=== PATIENT | male | born 1950 | race Caucasian/White ===

== ENCOUNTER 2018-03-30 05:55 | Inpatient (IN) | payer BC ==
[~2018-03-30 05:55] MED LIST: Buffered Lidocaine 0.9% SYRIN* 5 ML/SYR SYRINGE INTRADERM ONE
--- OUTSIDE RECORDS SUMMARY | 2018-03-30 05:58 | XMS REPORT | Continuity of Care Document ---
:1950 External Reference #:[id number] Author Name Carlin Borden M.D. Address [address] [place] [address] Care Team Providers Name Role Phone Miryam Smallwood M.D. Primary Care Physician Unavailable Payers Type Date Identification Numbers Payment Provider Subscriber Policy Number: [id number] [facility] Myrtle Guajardo PayID: [id number] [id number] [place] [id number] Advance Directives Description No Information Available Problems Date Description Provider Status Onset: Cardiac pacemaker in situ Active Onset: Bradycardia Active Onset: Atrial arrhythmia Active Onset: Stented coronary artery Active Onset: Coronary artery bypass grafts x 2 Active Onset: Coronary angioplasty Active Onset: Coronary arteriosclerosis Active Onset: Hypercholesterolemia Active Onset: Gout Active Onset: Vertigo Active Onset: 09/16/2016 Combined form of senile cataract Carlin Borden M.D. Active Onset: 03/23/2018 Tear film insufficiency Cariln Borden M.D. Active Family History Date Family Member(s) Problem(s) Comments Father No Current Problems Mother No Current Problems Social History Type Date Description Comments Sex Unknown Marital Status Legal Status: Occupation [employer] Work Status Retired ETOH Use Consumes 1 glass of wine per week ETOH Use Consumes 1-2 beers per week Tobacco Use Start: Unknown End: Patient is a former smoker Unknown Recreational Drug Use Denies Drug Use Smoking Status Reviewed: 03/23/18 Patient is a former smoker Allergies, Adverse Reactions, Alerts Date Description Reaction Status Severity Comments 03/21/2017 [facility] Active Medications Medication Date Status Form Strength Qnty SIG Indications Ordering Provider Metoprolol 00/00/ Active Tablets ER 25mg Take One Unknown Succinate ER 0000 24HR Tablet By Mouth Every Day Allopurinol 00/00/ Active Tablets 300mg Unknown 0000 Irbesartan 00/00/ Active Tablets 300mg Unknown 0000 Spironolactone 00/00/ Active Tablets 25mg Unknown 0000 Atorvastatin 0000/ Active Tablets 20mg Unknown Calcium 0000 Aspirin 00/ Active Tablets DR 81mg Unknown 0000 Clopidogrel /00/ Active Tablets 75mg Unknown Bisulfate 0000 Coq10 / Active Capsules 50mg Unknown 0000 Doxycycline 0000/ Hx Tablets 100mg Take One Unknown Hyclate 0000 - Tablet By Mouth Twice 2017 A Day Amoxicillin // Hx Capsules 500mg Take One Unknown 0000 - Capsule By Mouth Every 2016 8 Hours Until Gone Pantoprazole / Hx Tablets DR 40mg Take One Unknown Sodium 0000 - Tablet By Mouth Every 2016 Day Before Breakfast Ondansetron / Hx Tablets 4mg Dissolve Unknown 0000 - Dispers One Tablet On The 2017 Tongue Every Day as Needed For Nausea Omeprazole 00// Hx Capsules 40mg Take One Unknown 0000 - DR Capsule By 09/15/ Mouth Every 2017 Day Metoprolol 00// Hx Tablets 50mg Take One Unknown Tartrate 0000 - Tablet By Mouth Every 2016 12 Hours Cephalexin 00// Hx Capsules 500mg Take One Unknown 0000 - Capsule By Mouth Four 2017 Times A Day Immunizations Description No Information Available Vital Signs Description No Information Available Results Description No Information Available Procedures Date Code Description Status 03/21/2017 99479 Est Patient Intermediate Exam Completed 09/16/2016 73572 Determination Of Refractive State Completed 09/16/2016 40462 New Patient Comprehensive Exam Completed 01/14/2004 00525 Patient No Show For Appt Completed 09/27/2003 71330 Patient No Show For Appt Completed Encounters Description No Information Available Plan of Treatment 03/23/2018 - Carlin Borden M.D.H25.813 Combined forms of age-related cataract , bilateralComments:Smoking can increase the risk of developing or worsening any eye related disease, as well as affect your overall health. If you are a smoker, we strongly recommend that you quit.If you are not a smoker, we strongly recommend that you do not start. You have been diagnosed with cataracts. If you are happy with your vision as it is now, then we will see you at your next scheduled appointment. If you feel like your vision is getting worse before your scheduled appointment, please call Miryam or Mairann at .Follow up:6 Month Follow Up Diagnostic Refraction You can expect to have your eyes dilated at your next visit. If Dr. Borden orders any additional testing, it may require extra time. We recommend that you bring sunglasses, as dilation drops often make you light sensitive until they wear off. We always recommendyou bring someone to drive you home if you are uncomfortable driving with your eyes dilated. If you have any questions before your next visit, feel free to call our office at .H04.123 Dry eye syndrome of bilateral lacrimal glandsComments:Both of your eyes appear to be dry. Use artificial tears as directed. You can use the tears more often if you are reading a book or are on the computer, as we tend to blink less, making our eyes dry out more.[facility] offers a few items in our optical department to help alleviate dry eye symptoms. Systane and Refresh are good brands of tears you can use. You can pick these up at any pharmacy and they do not require a prescription.
--- OUTSIDE RECORDS SUMMARY | 2018-03-30 05:59 | XMS REPORT ---
:1950 External Reference #:[id number] Author Organization [facility] Address [address] [place] [address] [place] [address] Phone [phone] Care Team Providers Name Role Phone Miryam Smallwood MD Primary Care Physician Unavailable Payers Type Date Identification Payment Subscriber Numbers Provider [facility] Maintenance Effective: Policy Number: [facility] Myrtle Rosario [place] [place] [id number] Rachel PayID: [id number] [address] Problems Date Description Provider Status Onset: 10/05/2013 Acute myocardial infarction of Juan Francisco Kimble M.D. Active anterior wall Onset: 10/05/2013 Chest pain Juan Francisco Kimble M.D. Active Onset: 10/05/2013 Pure hypercholesterolemia Juan Francisco Kimble M.D. Active Onset: 10/05/2013 Essential hypertension Juan Francisco Kimble M.D. Active Onset: 10/15/2013 Coronary arteriosclerosis Edna Noyola M.D. Active Onset: 10/18/2013 Malignant essential hypertension Juan Francisco Kimble M.D. Active Onset: 02/28/2014 Chronic ischemic heart disease Rayshawn De León M.D., [facility], Active [facility] Onset: 12/04/2015 Cardiac pacemaker in situ Edna Noyola M.D. Active Family History Date Family Member(s) Problem(s) Comments General Heart Disease General Stroke General Diabetes General Hypertension General Epilepsy General Seizure Disorder General No Current Problems Father due to Heart Disease () Father Heart Disease Mother due to Stroke () Siblings 1 Sister One; , unknown reason. Social History Type Date Description Comments Marital Status Occupation Retired 01/2014 Cigarette Use Former Cigarette Smoker Pt denies ever smoking cigar, pipe, or using chewing tobacco. ETOH Use consumes 1-2 glasses of wine per week Smoking Patient is a former smoker 2 PPD for 10 years Recreational Drug Use Denies Drug Use Daily Caffeine Consumes on average 3 cups of regular coffee per day Exercise Type/Frequency Does not exercise Allergies, Adverse Reactions, Alerts Date Description Reaction Status Severity Comments 10/05/2013 Norvasc active leg swelling Medications Medication Date Status Form Strength Qnty SIG Indications Ordering Provider Eliquis 08/12/ Active Tablets 5mg 180ta 1 by mouth Juan Francisco 2018 bs twice a day Alek Kimble M.D. Metoprolol 11/15/ Active Tablets 25mg 360ta 1 by mouth Juan Francisco Succinate ER 2017 ER 24HR bs twice a day Alek Kimble M.D. Allopurinol / Active Tablets 300mg 30tab 1 tab by Unknown 0000 s mouth daily Bi-Pap / Active Pt states Unknown 0000 not on a regular basis but does try to. Clopidogrel / Active Tablets 75mg 90tab 1 by mouth Juan Francisco Bisulfate 0000 s every day Alek Kimble M.D. Spironolactone / Active Tablets 25mg 1 by mouth Unknown 0000 every day Irbesartan / Active Tablets 300mg 90tab 1 by mouth Juan Francisco 0000 s every day Alek Kimble M.D. Lipitor / Active Tablets 20mg 1 tab Tiw Unknown 0000 Xarelto 08/11/ Hx Tablets 20mg 90tab 1 by mouth Juan Francisco 2018 - s every day F. 08/12/ Milana Kimble M.D. Metoprolol 11/15/ Hx Tablets 50mg 180ta 1 tablet Juan Francisco Tartrate 2017 - bs twice a day F. 11/15/ Georgette Kimble M.D. Metoprolol 11/15/ Hx Tablets 25mg 180ta 1 by mouth Juan Francisco Succinate ER 2017 - ER 24HR bs twice a day F. 2016 M.D. Amlodipine 10/27/ Hx Tablets 5mg 90tab 1 by mouth R07.9 Juan Francisco Besylate 2015 - s every day . 01/26/ 2015 M.D. Aldactone 07/30/ Hx Tablets 25mg 90tab take 1 Juan Francisco 2015 - s tablets by 09/13/ mouth every 2017 M.D. Avapro 07/08/ Hx Tablets 300mg 90tab take 1 Juan Francisco 2015 - s tablet by F. 09/13/ mouth daily 2017 M.D. Plavix 07/03/ Hx Tablets 75mg 30tab 1 tab by I25.10 Juan Francisco 2015 - s mouth daily 09/13/ 2017 M.D. Lipitor 06/16/ Hx Tablets 20mg 90tab one tab by Juan Francisco 2014 - s mouth every 09/13/ night at 2017 bedtime M.D. Nitrostat 06/16/ Hx Tablets 0.4mg 25tab dissolve 1 Juan Francisco 2014 - Sub s tablet under 09/13/ the tongue 2017 every 5 M.D. minutes up to 3 doses as needed Nitroglycerin 02/14/ Hx Patches 0.4mg/HR 90uni place one 786.50 Juan Francisco 2013 - 24HR ts patch in in . 07/03/ the morning 2015 and remove M.D. in at night after 12 hours -- PT Is Not Currently Using 06/16/15 Enalapril 01/14/ Hx Tablets 5mg 180ta 1 by mouth Juan Francisco Maleate 2013 - bs twice a day . 2015 M.D. Atorvastatin 01/14/ Hx Tablets 20mg 100ta take 1 Juan Francisco Calcium 2013 - bs tablet at . 03/17/ bedtime 2014 M.D. Carvedilol 10/25/ Hx Tablets 12.5mg 180ta 1 by mouth 786.50 Juan Francisco 2013 - bs twice a day . 05/17/ 2014 M.D. Amlodipine 10/25/ Hx Tablets 5mg 180ta 1/2 by mouth 786.50 Juan Francisco Besylate 2013 - bs twice a day . 2015 M.D. Carvedilol 10/18/ Hx Tablets 3.125mg 120ta 3 by mouth 401.9 Juan Francisco 2013 - bs twice a day . 2013 M.D. Amlodipine 10/18/ Hx Tablets 2.5mg 100ta 2 by mouth Juan Francisco Besylate 2013 - bs every day . 2013 M.D. Nitro-Dur 10/18/ Hx Patches 0.2mg/HR 30uni 1 patch Juan Francisco 2013 - 24HR ts every day on 02/14/ in the in 2013 the morning, M.D. off in the at night to start 4.28.14 DO Not Use Cialis or similar medications Carvedilol 10/15/ Hx Tablets 3.125mg 60tab 1 by mouth 401.9 Edna 2013 - s twice a day Jazmín MYoana 2013 Aldactone 10/05/ Hx Tablets 25mg 90tab 1 by mouth Juan Francisco johnson every day . 2014 M.D. Aspir-Taylor 10/05/ Hx Tablets 325mg Juan Francisco Romero DR F. 2013 M.D. Aspir-81 10/05/ Hx Tablets 81mg 1 by mouth Juan Francisco Romero DR every day . 2017 M.D. Vasotec 10/01/ Hx Tablets 5mg 180ta twice a day Robbie 2013 Heather Bates Rafael 2013 Metoprolol 10/01/ Hx Tablets 25mg 90tab 1/2 tab by 401.9 Robbie Tartrate 2013 - s mouth twice DArley Bates, 10/15/ a day Rafael 2013 Lipitor 10/01/ Hx Tablets 40mg 90tab 1 by mouth Robbie 2013 - s every day Martina Bates MYoana 2013 Aspir-Taylor 10/01/ Hx Tablets 325mg Robbie Bates Rafael 2013 Cialis 10/01/ Hx Tablets 5mg Robbie 2014 Heather D. Brand, 10/18/ MYoana 2013 Brilinta / Hx Tablets 90mg 180ta 1 tab by Juan Francisco 0000 - bs mouth twice F. 07/03/ a day Shyanne 2015 M.D. Simvastatin / Hx Tablets 40mg 90tab 1 by mouth Unknown 0000 - s every night 01/14/ at bedtime 2013 Vasotec / Hx Tablets 10mg 1 by mouth Unknown 0000 - twice a day 2013 Potassium // Hx daily Unknown 0000 - 2013 Losartan / Hx Tablets 100mg 1 by mouth Unknown Potassium 0000 - every day 2015 Simvastatin // Hx Tablets 40mg 1 by mouth Unknown 0000 - every night 06/16/ at bedtime 2014 Metoprolol / Hx 1 tablet Josesitousebrayden, Tartrate 0000 - twice a day Juan Francisco, 2016 Multivitamin / Hx Tablets 1 by mouth Unknown Adults 0000 - every day 2017 Medications Administered in Office Medication Date Status Form Strength Qnty SIG Indications Ordering Provider Dexamethasone 07/28/ Administered Injection Ravi F Sodium 2017 Verenice, Phosphate, 1 MG Inj, 11/01/ Administered Injection Robbie Mack Regadenoson, 0.1 2013 Brand, MG M.D. Technetium TC 11/01/ Administered Injection Robbie Mack 99M Tetrofosmin, 2013 Paulo, Per Unit Dose Up M.D. To 40 Millicuries Vital Signs Date Vital Result Comment 03/07/2018 Height 69 inches 5'9" Weight 214.00 lb BP Systolic Sitting 130 mmHg BP Diastolic Sitting 80 mmHg Pain Level 4 BMI (Body Mass Index) 31.6 kg/m2 02/24/2018 Height 69 inches 5'9" Weight 215.00 lb Heart Rate 68 /min BP Systolic Sitting 114 mmHg lue rug cuff BP Diastolic Sitting 60 mmHg lue rug cuff Respiratory Rate 16 /min BMI (Body Mass Index) 31.7 kg/m2 Ejection Fraction 40-45% 09/21/2017 echo 02/23/2018 Height 69 inches 5'9" Weight 220.00 lb BP Systolic Sitting 112 mmHg BP Diastolic Sitting 84 mmHg Pain Level 3 BMI (Body Mass Index) 32.5 kg/m2 01/25/2018 Height 69 inches 5'9" Weight 220.00 lb BP Systolic Sitting 150 mmHg BP Diastolic Sitting 70 mmHg Pain Level 8 BMI (Body Mass Index) 32.5 kg/m2 12/22/2017 Height 69 inches 5'9" Heart Rate 52 /min BP Systolic 128 mmHg LA, reg BP Diastolic 86 mmHg LA, reg BP Systolic Sitting 122 mmHg Ra, reg BP Diastolic Sitting 86 mmHg Ra, reg BP Systolic Standing 122 mmHg standing BP Diastolic Standing 68 mmHg standing 11/10/2017 Height 69 inches 5'9" Weight 234.00 lb No shoes Heart Rate 78 /min BP Systolic 136 mmHg Home unit Rue - HR 71 BP Diastolic 68 mmHg Home unit Rue - HR 71 BP Systolic Sitting 132 mmHg Rue lrg cuff BP Diastolic Sitting 88 mmHg Rue lrg cuff Respiratory Rate 17 /min BMI (Body Mass Index) 34.6 kg/m2 Ejection Fraction 40-45% 09/21/2017-echo 09/14/2017 Height 69 inches 5'9" Weight 243.38 lb Heart Rate 76 /min BP Systolic Sitting 138 mmHg BP Diastolic Sitting 76 mmHg Respiratory Rate 18 /min BMI (Body Mass Index) 35.9 kg/m2 08/11/2017 Height 68 inches 5'8" Weight 244.00 lb reported Heart Rate 80 /min BP Systolic Sitting 144 mmHg BP Diastolic Sitting 82 mmHg BMI (Body Mass Index) 37.1 kg/m2 2017 Height 68 inches 5'8" Weight 244.00 lb Heart Rate 81 /min Respiratory Rate 14 /min Body Temperature 98.6 F Pain Level 5 BMI (Body Mass Index) 37.1 kg/m2 12/07/2016 Height 68 inches 5'8" Weight 238.75 lb with shoes Heart Rate 80 /min BP Systolic Sitting 134 mmHg Lue lrg cuff BP Diastolic Sitting 88 mmHg Lue lrg cuff BP Systolic Standing 142 mmHg Lue lrg cuff BP Diastolic Standing 86 mmHg Lue lrg cuff Respiratory Rate 16 /min BMI (Body Mass Index) 36.3 kg/m2 Ejection Fraction 40-45% 09/30/2013-echo 11/15/2016 Height 68 inches 5'8" Weight 239.00 lb w/shoes Heart Rate 82 /min BP Systolic Sitting 152 mmHg LA lg cuff BP Diastolic Sitting 92 mmHg LA lg cuff BMI (Body Mass Index) 36.3 kg/m2 Ejection Fraction 39% Nem 03/19/14 01/28/2016 Height 68 inches 5'8" Weight 250.25 lb with shoes Heart Rate 78 /min BP Systolic Sitting 132 mmHg LA lrg cuff BP Diastolic Sitting 88 mmHg LA lrg cuff BMI (Body Mass Index) 38.0 kg/m2 Ejection Fraction 39% Nem 03/19/14 12/17/2015 Height 68 inches 5'8" Weight 248.25 lb Heart Rate 80 /min BP Systolic Sitting 142 mmHg LA, reg BP Diastolic Sitting 84 mmHg LA, reg BMI (Body Mass Index) 37.7 kg/m2 Ejection Fraction 39% Nem Ef 03/19/14 12/04/2015 Height 68 inches 5'8" Weight 245.00 lb with shoes Heart Rate 90 /min BP Systolic Sitting 136 mmHg Ra lrg cuff BP Diastolic Sitting 90 mmHg Ra lrg cuff BP Systolic Standing 140 mmHg Ra lrg cuff BP Diastolic Standing 90 mmHg Ra lrg cuff Respiratory Rate 17 /min BMI (Body Mass Index) 37.2 kg/m2 Ejection Fraction 40-45% 09/30/13 10/28/2015 Height 68 inches 5'8" Weight 244.75 lb with shoes Heart Rate 48 /min BP Systolic Sitting 130 mmHg LA, large BP Diastolic Sitting 64 mmHg LA, large BMI (Body Mass Index) 37.2 kg/m2 Ejection Fraction 44% Nem 03/19/14 09/10/2015 Heart Rate 64 /min BP Systolic 142 mmHg Ra, large, sit BP Diastolic 70 mmHg Ra, large, sit BP Systolic Sitting 130 mmHg LA, large, sit BP Diastolic Sitting 68 mmHg LA, large, sit BP Systolic Standing 148 mmHg LA, large BP Diastolic Standing 70 mmHg LA, large 08/13/2015 Height 69 inches 5'9" Weight 241.00 lb with shoes Heart Rate 62 /min BP Systolic 122 mmHg left arm office cuff BP Diastolic 78 mmHg left arm office cuff BP Systolic Sitting 167 mmHg left arm home cuff BP Diastolic Sitting 80 mmHg left arm home cuff Respiratory Rate 20 /min BMI (Body Mass Index) 35.6 kg/m2 07/29/2015 Height 69 inches 5'9" Heart Rate 62 /min BP Systolic Sitting 154 mmHg L arm , reg cuff BP Diastolic Sitting 80 mmHg L arm , reg cuff BP Systolic Standing 158 mmHg BP Diastolic Standing 84 mmHg Respiratory Rate 18 /min 07/03/2015 Height 69 inches 5'9" Weight 241.50 lb w/o shoes Heart Rate 56 /min reg BP Systolic Sitting 148 mmHg Rue, lg cuff BP Diastolic Sitting 88 mmHg Rue, lg cuff BP Systolic Standing 144 mmHg Rue BP Diastolic Standing 82 mmHg Rue Respiratory Rate 18 /min BMI (Body Mass Index) 35.7 kg/m2 Ejection Fraction 40-45% as of 09/30/13 echo 06/16/2015 Height 69 inches 5'9" Weight 238.50 lb w/o shoes Heart Rate 54 /min reg BP Systolic Sitting 142 mmHg Rue, lg cuff BP Diastolic Sitting 80 mmHg Rue, lg cuff BP Systolic Standing 140 mmHg Rue BP Diastolic Standing 86 mmHg Rue Respiratory Rate 18 /min BMI (Body Mass Index) 35.2 kg/m2 Ejection Fraction 40-45% as of 09/30/13 echo 06/28/2014 Height 69 inches 5'9" Weight 242.00 lb without shoes Heart Rate 50 /min BP Systolic Sitting 134 mmHg La lg cuff BP Diastolic Sitting 60 mmHg La lg cuff BP Systolic Standing 122 mmHg La lg cuff BP Diastolic Standing 64 mmHg La lg cuff Respiratory Rate 16 /min BMI (Body Mass Index) 35.7 kg/m2 05/17/2014 Height 69 inches 5'9" Weight 240.00 lb Heart Rate 52 /min BP Systolic 220 mmHg LA reg BP Diastolic 100 mmHg LA reg BP Systolic Sitting 180 mmHg LA reg BP Diastolic Sitting 102 mmHg LA reg BMI (Body Mass Index) 35.4 kg/m2 03/21/2014 Height 69 inches 5'9" Weight 247.00 lb Heart Rate 54 /min 60 BP Systolic Sitting 196 mmHg right arm, large cuff BP Diastolic Sitting 88 mmHg right arm, large cuff BP Systolic Standing 172 mmHg right arm, large cuff BP Diastolic Standing 86 mmHg right arm, large cuff Respiratory Rate 16 /min BMI (Body Mass Index) 36.5 kg/m2 02/28/2014 Height 69 inches 5'9" Weight 242.00 lb Heart Rate 56 /min 58 BP Systolic Sitting 126 mmHg left arm, reg cuff BP Diastolic Sitting 80 mmHg left arm, reg cuff BP Systolic Standing 118 mmHg left arm, reg cuff BP Diastolic Standing 78 mmHg left arm, reg cuff Respiratory Rate 16 /min BMI (Body Mass Index) 35.7 kg/m2 02/14/2014 Height 69 inches 5'9" Weight 244.00 lb Heart Rate 52 /min BP Systolic Sitting 168 mmHg LA reg cuff BP Diastolic Sitting 88 mmHg LA reg cuff Respiratory Rate 12 /min BMI (Body Mass Index) 36.0 kg/m2 01/14/2014 Height 69 inches 5'9" Weight 243.00 lb Heart Rate 72 /min BP Systolic Sitting 132 mmHg right, large BP Diastolic Sitting 86 mmHg right, large BMI (Body Mass Index) 35.9 kg/m2 10/25/2013 Height 69 inches 5'9" Heart Rate 72 /min BP Systolic Sitting 148 mmHg BP Diastolic Sitting 74 mmHg 10/23/2013 Height 69 inches 5'9" Weight 240.00 lb with shoes Heart Rate 76 /min BP Systolic Sitting 160 mmHg LA lg cuff BP Diastolic Sitting 92 mmHg LA lg cuff BP Systolic Standing 146 mmHg LA lg cuff BP Diastolic Standing 100 mmHg LA lg cuff BP Systolic Recheck 197 mmHg LA pt cuff BP Diastolic Recheck 122 mmHg LA pt cuff Respiratory Rate 17 /min BMI (Body Mass Index) 35.4 kg/m2 10/15/2013 Heart Rate 50 /min BP Systolic Sitting 218 mmHg BP Diastolic Sitting 78 mmHg BP Systolic Standing 208 mmHg Ra, large cuff BP Diastolic Standing 84 mmHg Ra, large cuff Respiratory Rate 16 /min 10/05/2013 Height 68 inches 5'8" Weight 249.00 lb Heart Rate 44 /min BP Systolic Sitting 170 mmHg repeat 152/83 BP Diastolic Sitting 80 mmHg repeat 152/83 Respiratory Rate 16 /min BMI (Body Mass Index) 37.9 kg/m2 Results Test Date Test Result H/L Range Note [facility] - [facility] 01/12/2017 Creatine Kinase(CK) 192 U/L 10-223 Comp Metabolic Panel 01/12/2017 Sodium 137 mmol/L 133-145 Potassium 4.7 mmol/L 3.5-5.0 Chloride 106 mmol/L 101-111 Co2 Carbon Dioxide 24 mmol/L 22-32 Anion Gap 7 mmol/L 2-11 Glucose 127 mg/dL High 70-100 Blood Urea Nitrogen 39 mg/dL High 6-24 Creatinine 1.58 mg/dL High 0.67-1.17 BUN/Creatinine Ratio 24.7 High 8-20 Calcium 9.4 mg/dL 8.6-10.3 Total Protein 7.1 g/dL 6.4-8.9 Albumin 4.4 g/dL 3.2-5.2 Globulin 2.7 g/dL 2-4 Albumin/Globulin Ratio 1.6 1-3 Total Bilirubin 0.70 mg/dL 0.2-1.0 Alkaline Phosphatase 66 U/L 34-104 Alt 24 U/L 7-52 Ast 18 U/L 13-39 Egfr Non- 44.1 >60 Egfr 56.7 >60 1 CBC Auto Diff 01/12/2017 White Blood Count 6.5 10^3/uL 3.5-10.8 Red Blood Count 4.76 10^6/uL 4.0-5.4 Hemoglobin 15.1 g/dL 14.0-18.0 Hematocrit 46 % 42-52 Mean Corpuscular Volume 96 fL High 80-94 Mean Corpuscular Hemoglobin 32 pg High 27-31 Mean Corpuscular HGB Conc 33 g/dL 31-36 Red Cell Distribution Width 14 % 10.5-15 Platelet Count 191 10^3/uL 150-450 Mean Platelet Volume 10 um3 7.4-10.4 Abs Neutrophils 3.7 10^3/uL 1.5-7.7 Abs Lymphocytes 1.9 10^3/uL 1.0-4.8 Abs Monocytes 0.5 10^3/uL 0-0.8 Abs Eosinophils 0.3 10^3/uL 0-0.6 Abs Basophils 0.1 10^3/uL 0-0.2 Abs Nucleated RBC 0 10^3/uL Granulocyte % 57.0 % 38-83 Lymphocyte % 29.2 % 25-47 Monocyte % 8.1 % 1-9 Eosinophil % 4.7 % 0-6 Basophil % 1.0 % 0-2 Nucleated Red Blood Cells % 0 Lipid Profile (Trig/Chol/HDL) 01/12/2017 Triglycerides 225 mg/dL 2 Cholesterol 135 mg/dL 3 HDL Cholesterol 26.7 mg/dL 4 LDL Cholesterol 63 mg/dL 5 CBC Auto Diff 11/27/2015 White Blood Count 7.6 10^3/uL 3.5-10.8 Red Blood Count 4.65 10^6/uL 4.0-5.4 Hemoglobin 14.6 g/dL 14.0-18.0 Hematocrit 44 % 42-52 Mean Corpuscular Volume 94 fL 80-94 Mean Corpuscular Hemoglobin 31 pg 27-31 Mean Corpuscular HGB Conc 33 g/dL 31-36 Red Cell Distribution Width 14 % 10.5-15 Platelet Count 222 10^3/uL 150-450 Mean Platelet Volume 9 um3 7.4-10.4 Abs Neutrophils 4.8 10^3/uL 1.5-7.7 Abs Lymphocytes 1.8 10^3/uL 1.0-4.8 Abs Monocytes 0.5 10^3/uL 0-0.8 Abs Eosinophils 0.3 10^3/uL 0-0.6 Abs Basophils 0.1 10^3/uL 0-0.2 Abs Nucleated RBC 0 10^3/uL Granulocyte % 63.8 % 38-83 Lymphocyte % 24.0 % Low 25-47 Monocyte % 7.2 % 1-9 Eosinophil % 3.9 % 0-6 Basophil % 1.1 % 0-2 Nucleated Red Blood Cells % 0.1 Basic Metabolic Panel 11/27/2015 Sodium 137 mmol/L 133-145 Potassium 4.5 mmol/L 3.5-5.0 Chloride 105 mmol/L 101-111 Co2 Carbon Dioxide 24 mmol/L 22-32 Anion Gap 8 mmol/L 2-11 Glucose 123 mg/dL High 70-100 Blood Urea Nitrogen 21 mg/dL 6-24 Creatinine 1.22 mg/dL High 0.67-1.17 BUN/Creatinine Ratio 17.2 8-20 Calcium 9.3 mg/dL 8.6-10.3 Egfr Non- 59.6 >60 Egfr 76.7 >60 6 Laboratory test finding 11/27/2015 Partial Thrombo Time 30.9 seconds 26.0 -36.3 PTT Inr/Protime 11/27/2015 Inr 0.98 0.89-1.11 Basic Metabolic Panel 08/11/2015 Sodium 135 mmol/L 133-145 Potassium 4.3 mmol/L 3.5-5.0 Chloride 101 mmol/L 101-111 Co2 Carbon Dioxide 26 mmol/L 22-32 Anion Gap 8 mmol/L 2-11 Glucose 137 mg/dL High 70-100 Blood Urea Nitrogen 28 mg/dL High 6-24 Creatinine 1.27 mg/dL High 0.67-1.17 BUN/Creatinine Ratio 22.0 High 8-20 Calcium 10.1 mg/dL 8.6-10.3 Egfr Non- 56.9 >60 Egfr 73.2 >60 7 CBC Auto Diff 06/28/2014 White Blood Count 7.8 10^3/uL 4.8-10.8 Red Blood Count 4.96 10^6/uL 4.0-5.4 Hemoglobin 15.3 g/dL 14.0-18.0 Hematocrit 45 % 42-52 Mean Corpuscular Volume 90 fL 80-94 Mean Corpuscular Hemoglobin 31 pg 27-31 Mean Corpuscular HGB Conc 34 g/dL 31-36 Red Cell Distribution Width 15 % 10.5-15 Platelet Count 219 10^3/uL 150-450 Mean Platelet Volume 10 um3 7.4-10.4 Abs Neutrophils 5.0 10^3/uL 1.5-7.7 Abs Lymphocytes 1.9 10^3/uL 1.0-4.8 Abs Monocytes 0.7 10^3/uL 0-0.8 Abs Eosinophils 0.2 10^3/uL 0-0.6 Abs Basophils 0 10^3/uL 0-0.2 Abs Nucleated RBC 0.01 10^3/uL Granulocyte % 64.4 % 38-83 Lymphocyte % 23.9 % Low 25-47 Monocyte % 8.6 % 1-9 Eosinophil % 2.6 % 0-6 Basophil % 0.5 % 0-2 Nucleated Red Blood Cells % 0.1 Laboratory test finding 06/28/2014 TSH (Thyroid Stimulating 2.68 IU/mL 0.34-5.60 Horm) Basic Metabolic Panel 06/28/2014 Sodium 135 mmol/L 133-145 Potassium 4.5 mmol/L 3.5-5.0 Chloride 103 mmol/L 101-111 Co2 Carbon Dioxide 26 mmol/L 22-32 Anion Gap 6 mmol/L 2-11 Glucose 121 mg/dL High 70-100 Blood Urea Nitrogen 28 mg/dL High 6-24 Creatinine 1.51 mg/dL High 0.67-1.17 BUN/Creatinine Ratio 18.5 8-20 Calcium 9.7 mg/dL 8.6-10.3 Egfr Non- 46.9 >60 Egfr 60.3 >60 8 Urinalysis Profile 06/28/2014 Urine Color Yellow Urine Appearance Clear Urine Specific [place] 1.017 1.010-1.030 Urine pH 5.0 5-9 Urine Urobilinogen Negative Negative Urine Ketones Negative Negative Urine Protein 1+(30 mg/dL) Negative Urine Leukocytes Negative Negative Urine Blood Negative Negative Urine Nitrite Negative Negative Urine Bilirubin Negative Negative Urine Glucose Negative Negative Urine White Blood Cell Trace Absent Urine Red Blood Cell 1+(3-5/hpf) Absent Urine Bacteria Absent Absent Urine Culture And Sensitivities 06/28/2014 Urine Culture (SEE NOTE) 9 Basic Metabolic Panel 10/15/2013 Sodium 139 mmol/L 133-145 10 Potassium 4.2 mmol/L 3.7-5.6 10 Chloride 106 mmol/L 101-111 10 Co2 Carbon Dioxide 26 mmol/L 22-32 10 Anion Gap 7 mmol/L 2-11 10 Glucose 90 mg/dL 70-100 10 Blood Urea Nitrogen 23 mg/dL 6-24 10 Creatinine 1.09 mg/dL 0.67-1.17 10 BUN/Creatinine Ratio 21.1 High 8-20 10 Calcium 9.2 mg/dL 8.6-10.3 10 Egfr Non- 68.3 >60 10 Egfr 87.9 >60 10, 11 Laboratory test finding 10/15/2013 Troponin I 0.02 ng/mL <0.03 10, 12 Basic Metabolic Panel 10/04/2013 Sodium 140 mmol/L 133-145 Potassium 4.1 mmol/L 3.7-5.6 Chloride 105 mmol/L 101-111 Co2 Carbon Dioxide 27 mmol/L 22-32 Anion Gap 8 mmol/L 2-11 Glucose 105 mg/dL High 70-100 Blood Urea Nitrogen 14 mg/dL 6-24 Creatinine 1.10 mg/dL 0.67-1.17 BUN/Creatinine Ratio 12.7 8-20 Calcium 9.2 mg/dL 8.6-10.3 Egfr Non- 67.6 >60 Egfr 86.9 >60 13 CBC No Diff 10/04/2013 White Blood Count 8.5 10^3/uL 4.8-10.8 Red Blood Count 4.90 10^6/uL 4.0-5.4 Hemoglobin 15.4 g/dL 14.0-18.0 Hematocrit 44 % 42-52 Mean Corpuscular Volume 90 fL 80-94 Mean Corpuscular Hemoglobin 31 pg 27-31 Mean Corpuscular HGB Conc 35 g/dL 31-36 Red Cell Distribution Width 14 % 10.5-15 Platelet Count 250 10^3/uL 150-450 Mean Platelet Volume 9 um3 7.4-10.4 1 Because ethnic data is not always readily available, this report includes an eGFR for both -Americans and non- Americans. The National Kidney Disease Education Program (NKDEP) does not endorse the use of the MDRD equation for patients that are not between the ages of 18 and 70, are , have extremes of body size, muscle mass, or nutritional status, or are non- or non-. According to the National Kidney Foundation, irrespective of diagnosis, the stage of the disease is based on the level of kidney function: Stage Description GFR(mL/min/1.73 m(2)) 1 Kidney damage with normal or decreased GFR 90 2 Kidney damage with mild decrease in GFR 60-89 3 Moderate decrease in GFR 30-59 4 Severe decrease in GFR 15-29 5 Kidney failure <15 (or dialysis) 2 Desirable <150 Borderline high 150-199 High 200-499 Very High >500 3 Desirable <200 Borderline high 200-239 High >239 4 Low <40 Desirable: 40-60 High: >60 5 Desirable: <100 mg/dL Near Optimal: 100-129 mg/dL Borderline High: 130-159 mg/dL High: 160-189 mg/dL Very High: >189 mg/dL 6 Because ethnic data is not always readily available, this report includes an eGFR for both -Americans and non- Americans. The National Kidney Disease Education Program (NKDEP) does not endorse the use of the MDRD equation for patients that are not between the ages of 18 and 70, are , have extremes of body size, muscle mass, or nutritional status, or are non- or non-. According to the National Kidney Foundation, irrespective of diagnosis, the stage of the disease is based on the level of kidney function: Stage Description GFR(mL/min/1.73 m(2)) 1 Kidney damage with normal or decreased GFR 90 2 Kidney damage with mild decrease in GFR 60-89 3 Moderate decrease in GFR 30-59 4 Severe decrease in GFR 15-29 5 Kidney failure <15 (or dialysis) 7 Because ethnic data is not always readily available, this report includes an eGFR for both -Americans and non- Americans. The National Kidney Disease Education Program (NKDEP) does not endorse the use of the MDRD equation for patients that are not between the ages of 18 and 70, are , have extremes of body size, muscle mass, or nutritional status, or are non- or non-. According to the National Kidney Foundation, irrespective of diagnosis, the stage of the disease is based on the level of kidney function: Stage Description GFR(mL/min/1.73 m(2)) 1 Kidney damage with normal or decreased GFR 90 2 Kidney damage with mild decrease in GFR 60-89 3 Moderate decrease in GFR 30-59 4 Severe decrease in GFR 15-29 5 Kidney failure <15 (or dialysis) 8 Because ethnic data is not always readily available, this report includes an eGFR for both -Americans and non- Americans. The National Kidney Disease Education Program (NKDEP) does not endorse the use of the MDRD equation for patients that are not between the ages of 18 and 70, are , have extremes of body size, muscle mass, or nutritional status, or are non- or non-. According to the National Kidney Foundation, irrespective of diagnosis, the stage of the disease is based on the level of kidney function: Stage Description GFR(mL/min/1.73 m(2)) 1 Kidney damage with normal or decreased GFR 90 2 Kidney damage with mild decrease in GFR 60-89 3 Moderate decrease in GFR 30-59 4 Severe decrease in GFR 15-29 5 Kidney failure <15 (or dialysis) 9 RUN DATE: 06/30/14 [facility] LAB LIVE PAGE 1 RUN TIME: [address] [place] [id number] Specimen Inquiry Name: MARTÍN MARSH : [address]: Bessy LEBLANC Acct: [id number] Unit: [id number] AGE: 63 [facility] SEX: M Status: REG REF SPEC: [id number] TORRES: 06/28/[address]: Bsesy LEBLANC REQ: [id number] RECD: 06/28/14 STATUS: COMP _ SOURCE: URINE SPDESC: ORDERED: Urine Culture QUERIES: Medent Number [id number] Urine Source: Clean Catch Procedure Result Verified Site Urine Culture Final 06/30/14837 ML Organism 1 NORMAL KIAH [place] Count 10-25,000 (Moderate) CFU/ML END OF REPORT * ML=Testing performed at Main Lab DEPARTMENT OF PATHOLOGY, [address] [place] [address] Adan Mayfield M.D. Director [facility] # [id number] [phone] PAGE WITH RESULTS 11 Because ethnic data is not always readily available, this report includes an eGFR for both -Americans and non- Americans. The National Kidney Disease Education Program (NKDEP) does not endorse the use of the MDRD equation for patients that are not between the ages of 18 and 70, are , have extremes of body size, muscle mass, or nutritional status, or are non- or non-. According to the National Kidney Foundation, irrespective of diagnosis, the stage of the disease is based on the level of kidney function: Stage Description GFR(mL/min/1.73 m(2)) 1 Kidney damage with normal or decreased GFR 90 2 Kidney damage with mild decrease in GFR 60-89 3 Moderate decrease in GFR 30-59 4 Severe decrease in GFR 15-29 5 Kidney failure <15 (or dialysis) 12 Reference Range and Interpretation: TnI (ng/mL) Interpretation Less Than 0.03 ng/mL Not supportive of diagnosis of MA 0.03 - 0.50 ng/mL Indeterminate: suggest serial studies if clinically indicated. Greater than 0.5 ng/mL Consistent with diagnosis of MA 13 Because ethnic data is not always readily available, this report includes an eGFR for both -Americans and non- Americans. The National Kidney Disease Education Program (NKDEP) does not endorse the use of the MDRD equation for patients that are not between the ages of 18 and 70, are , have extremes of body size, muscle mass, or nutritional status, or are non- or non-. According to the National Kidney Foundation, irrespective of diagnosis, the stage of the disease is based on the level of kidney function: Stage Description GFR(mL/min/1.73 m(2)) 1 Kidney damage with normal or decreased GFR 90 2 Kidney damage with mild decrease in GFR 60-89 3 Moderate decrease in GFR 30-59 4 Severe decrease in GFR 15-29 5 Kidney failure <15 (or dialysis) Procedures Date CPT Code Description Status 01/09/2018 90894 Pace Maker Eval W/Iterative Adjment Dual Lead Completed 01/09/2018 56463 Pace Maker Eval W/Iterative Adjment Dual Lead Completed 10/21/2017 08625 Treadmill Interp/Report Only Completed 10/21/2017 11780 Stress Test Supervsn W/Out I/R Completed 09/30/2017 33360 Nerve Conduction 07-08 Studies Completed 09/30/2017 54113 Needle Electromyography Each Extremity W/Related Completed Paraspinal Areas 09/21/2017 35134 ECHO Transthoracic, Real-Time 2D With Doppler And Color Completed Flow 09/21/2017 95961 ECHO Transthoracic, Real-Time 2D With Doppler And Color Completed Flow 08/30/2017 08283 Nerve Conduction 05-06 Studies Completed 08/30/2017 92186 Needle Electromyography Complete, Five Or More Muscles Completed Studied 08/11/2017 62795 EKG Tracing & Interpretation Completed 08/11/2017 48014 Pace Maker Eval W/Iterative Adjment Dual Lead Completed 08/11/2017 30066 Pace Maker Eval W/Iterative Adjment Dual Lead Completed 2017 07439 Injection Single Tendon Origin/Insertion Completed 02/15/2017 32935 Pace Maker Eval W/Iterative Adjment Dual Lead Completed 11/15/2016 19731 EKG Tracing & Interpretation Completed 09/27/2016 39960 Interrogation Device Eval In Person W/DR Completed Analysis,Single,Dual,Mul 07/30/2016 58386 Pace Maker Eval W/Iterative Adjment Dual Lead Completed 01/06/2016 67908 Pace Maker Eval W/Iterative Adjment Dual Lead Completed 12/17/2015 43976 EKG Tracing & Interpretation Completed 12/17/2015 72328 Pacemaker Check Remote Up To 90Days Completed Single,Dual,Multiple Lead 12/17/2015 24956 Icd Eval Sing,Dual,Multi Lead Remote Recpt Transm Tech Completed Rev Tech S 11/28/2015 38221 EKG, Interpretation Only Completed 11/27/2015 07772 EKG, Interpretation Only Completed 11/27/2015 12971 Perm Pacemaker Av Sequential Atrial And Ventricular Completed 10/28/2015 99952 EKG Tracing & Interpretation Completed 06/16/2015 18272 EKG Tracing & Interpretation Completed 05/17/2014 01775 EKG Tracing & Interpretation Completed 03/19/2014 18913 Treadmill Interp/Report Only Completed 03/19/2014 25409 Stress Test Supervsn W/Out I/R Completed 01/14/2014 47807 EKG Tracing & Interpretation Completed 11/01/2013 12350 Myocardial Perfusion Imaging Tomographic (Spect) Completed Multiple Studies 11/01/2013 55318 Stress Test Completed 10/18/2013 99659 EKG Tracing & Interpretation Completed 10/15/2013 41068 EKG Tracing & Interpretation Completed 10/05/2013 85613 EKG Tracing & Interpretation Completed 10/01/2013 94307 EKG, Interpretation Only Completed 09/30/2013 62217 ECHO Transthorasic Realtime 2D W Doppler & Color Flow Completed Hosp 09/30/2013 55801 EKG, Interpretation Only Completed 09/29/2013 65495 Left Heart Cath. Incl S/I Coronaries, Angio S/I V Gram Completed If Done 09/29/2013 38662 EKG, Interpretation Only Completed 09/29/2013 30066 Revascularization Acute Total/Subtotal Occlusion Completed 09/29/2013 64650 Revascularization Acute Total/Subtotal Occlusion Completed Encounters Type Date Location Provider CPT E/M Dx Office Visit 02/24/2018 [facility] Of Lisa Blue, N.PArley 92494 I42.9 3:30p Silvestre I25.10 I10 I48.0 Office Visit 02/23/2018 4:00p [facility] 98799 M47.892 Of Silvestre Rothman MD M50.122 Office Visit 01/25/2018 10:30a [facility] 24630 M54.16 Of Silvestre Rothman MD M47.892 M47.896 Office Visit 12/22/2017 9:30a [facility] [place] [address] I10 Office Visit 11/10/2017 3:00p [facility] Sonja Kimble, 37946 I25.10 Silvestre Hall M54.16 I42.9 I49.5 I48.0 I10 Office Visit 09/14/2017 9:00a [facility] David Valderrama, 71786 R53.1 Services Of Silvestre Hall R26.81 G62.9 Office Visit 08/11/2017 12:00p [facility] Juan Francisco Kimble M.D. 26324 I10 E78.00 I42.9 I25.10 I48.0 Office Visit 2017 10:45a [facility] Ravi Caldera, 59519 M77.11 Suman ARNDT M77.12 M25.531 G56.22 G56.21 R20.0 Office Visit 12/07/2016 10:30a [facility] BENJI Hoffmann 21233 I25.10 I10 Z95.0 Office Visit 11/15/2016 9:00a [facility] Juan Francisco Kimble M.D. 99164 I49.5 Z95.0 I25.10 I10 R07.9 Z91.14 E66.9 Office Visit 07/30/2016 11:40a [facility] Juan Francisco Kimble 79098 I25.10 Rafael Z95.0 I48.0 Office Visit 01/28/2016 11:30a [facility] BENJI Hoffmann 20198 Z95.0 I25.10 I10 Office Visit 12/17/2015 10:40a [facility] Juan Francisco Kimble M.D. 15231 Z95.0 I25.10 I49.5 R07.9 I10 Office Visit 10/28/2015 1:20p [facility] Juan Francisco Kimble M.D. 69825 R07.9 I10 I25.10 E78.0 Office Visit 09/10/2015 10:00a [facility] [place] [address] I10 Office Visit 08/13/2015 9:00a [facility] [place] [address] I10 Office Visit 07/29/2015 9:30[place] [facility] [place] [address] I10 Office Visit 07/03/2015 9:30a [facility] BENJI Hoffmann 14831 I25.10 E78.0 I25.5 I10 G47.33 Office Visit 06/16/2015 10:30a [facility] Juan Francisco Kimble, 49740 E78.0 [facility] Rafael I25.10 I10 Office Visit 06/28/2014 9:15a [facility] BENJI Hoffmann 04829 401.9 272.0 414.00 414.8 780.64 327.23 Office Visit 05/17/2014 1:20p [facility] Juan Francisco Kimble M.D. 80628 401.0 272.0 414.00 Office Visit 03/21/2014 3:20p [facility] Rayshawn De León M.D., 51492 401.9 [employer] [facility] 414.8 272.0 Office Visit 02/28/2014 2:45p [facility] Rayshawn De León M.D., 51087 401.9 [employer] AT [facility] 414.8 Office Visit 02/14/2014 3:30p [facility] BENJI Hoffmann 11256 786.50 401.9 414.00 410.10 401.0 Office Visit 01/14/2014 3:00p [facility] Juan Francisco Kimble 74812 786.50 M.D. 401.9 414.00 272.0 Office Visit 10/25/2013 2:00p [facility] BENJI Hoffmann 83024 786.50 414.00 401.0 Office Visit 10/23/2013 10:00a [facility] BENJI Hoffmann 34266 401.9 786.50 414.00 Office Visit 10/18/2013 3:30p [facility] Juan Francisco Kimble 21367 786.50 M.D. 401.0 414.00 Office Visit 10/15/2013 12:00p [facility] Yudith Noyola M.D. 55045 786.50 [facility] 401.9 414.00 Office Visit 10/05/2013 3:20p [facility] Juan Francisco Kimble 54889 410.10 M.D. 786.50 272.0 401.9 Office Visit 09/30/2013 9:47a [facility] Juan Francisco Kimble 83136 410.10 M.D. Office Visit 09/29/2013 3:38p [facility] Juan Francisco Kimble 09445 786.50 M.D. 410.81 272.0 401.1 Plan of Care Future Appointment(s):07/04/2018 10:00 am - Promise Rothman MD at [facility]05/02/2018 10:00 am - Promise Rothman MD at [facility]04/10/2018 4:00 pm - Promise Rothman MD at [facility]03/30/2018 9:13 am - Promise Rothman MD at [facility]03/09/2018 2:00 pm - Nurse Visit cc at [facility]03/07/2018 - Promise Rothman, MDM50.122 Cervical disc disorder at C5-C6 level with radiculopathyFollow up:RV one week, one month , three months tqzqizJ50.896 Other spondylosis, lumbar vppbwzD89.16 Radiculopathy, lumbar region
[2018-03-30] MEDS ORDERED: Famotidine IV* 10 MG/ML 2 ML (20 mg) IV ONE (06:00)
[2018-03-30] MEDS ORDERED: ceFAZolin 2 GM in NS PREMIX(*) 2 GM/100 ML BAG IVPB ONE (06:15)
[2018-03-30] MEDS ORDERED: Famotidine IV* 10 MG/ML 2 ML (20 mg) ONE (06:15)
[2018-03-30] MEDS ORDERED: Lidocaine 1% MPF wEPI 200,000* 30 ML SDV ONE (07:12)
[2018-03-30] MEDS ORDERED: Thrombin 5,000 UNITS* 1 APPLIC KIT - topical use - TOPICAL ONE (07:12)
[2018-03-30] MEDS ORDERED: Bacitracin IV* 50,000 UNITS INJ ONE (07:12)
[2018-03-30] MEDS ORDERED: Ondansetron INJ* 2 MG/ML VIAL ONE (07:13)
[2018-03-30] MEDS ORDERED: Cisatracurium* 2 MG/ML MDV 5 ML ONE (07:13)
[2018-03-30] MEDS ORDERED: fentaNYL* 50 MCG/ML 2 ML VIAL (100 MCG VIAL) ONE ×2 (07:13→11:36)
[2018-03-30] MEDS ORDERED: Lidocaine 2% PF * 5 ML VIAL ONE (07:13)
[2018-03-30] MEDS ORDERED: Propofol* 10 MG/ML 20 ML BTL IV PUSH ONE (07:13)
[2018-03-30] MEDS ORDERED: Dexamethasone IV* 4 MG/ML 1 ML (4 MG) ONE (07:13)
[2018-03-30] MEDS ORDERED: Phenylephrine INJ* 10 MG/ML 1 ML VIAL (10 MG) ONE (07:13)
[2018-03-30] MEDS ORDERED: KETAMINE HCL* 50 MG/ML 10 ML VIAL ONE (07:14)
[2018-03-30] MEDS ORDERED: Midazolam* 1 MG/ML 5 ML VIAL (5 MG) ONE (07:14)
[2018-03-30] MEDS ORDERED: Naloxone* 0.4 MG/ML 1 ML VIAL IV PRN (10:00)
[2018-03-30] MEDS ORDERED: Ondansetron INJ* 2 MG/ML VIAL IV PRN ×2 (10:00→11:27)
--- NOTE | 2018-03-30 11:21 | RAD ---
INDICATION: Anterior cervical discectomy C5-C6. COMPARISON: February 20, 2018 MRI. TECHNIQUE: 24.1 seconds fluoroscopy. FINDINGS: Spot images document anterior C5-C6 core decompression and fusion. IMPRESSION: Interoperative control films. CPT II Codes: G9500
[2018-03-30] MEDS ORDERED: HYDROcodone/ACETAMIN 5-325 MG* 1 TAB PO PRN (11:27)
[2018-03-30] MEDS ORDERED: Magnesium Hydroxide LIQ* 30 ML UDC PO PRN (11:27)
[2018-03-30] MEDS ORDERED: Acetaminophen TAB* 325 MG PO PRN (11:27)
[2018-03-30] MEDS: fentaNYL* 50 MCG/ML 2 ML VIAL (100 MCG VIAL) IV PRN ×2 (11:37→11:56)
[2018-03-30] MEDS ORDERED: Benzocaine/Menthol LOZ* 1 LOZENGE PO PRN (19:59)
[2018-03-30] MEDS: Metoclopramide IV* 5 MG/ML 2 ML VIAL IV PRN (21:03)
[2018-03-30] MEDS: Metoprolol Succinate XL TAB* 25 MG PO SCH (23:24)
--- NOTE | 2018-03-31 00:43 | CONS ---
CC: Dr. Smallwood * CONSULTATION REPORT: DATE OF CONSULT: 03/30/18 PRIMARY CARE PROVIDER: Dr. Smallwood. SERVICE REQUESTING CONSULTATION: Neurosurgery. REASON FOR CONSULT: Medical co-management. SOURCE OF INFORMATION: History obtained from interview with the patient, review of Dr. Smallwood's last note. RELIABILITY: Excellent. HISTORY OF PRESENT ILLNESS: This is a 67-year-old man, postop day 0, anterior cervical discectomy and fusion at C5-C6 with Dr. Rothman. Reportedly, the procedure was without complication. The patient was seen after the transfer from PACU to surgical stay unit. He had no complaints other than he had to urinate. His pain was well controlled. He denied chest pain or shortness of breath. No nausea or vomiting. In agreement with previous notes, he has stopped using his CPAP. He has been holding his Plavix and Eliquis for 7 days prior to presentation. PAST MEDICAL HISTORY: Includes atrial fibrillation, on Eliquis; CAD, status post CABG in as well as cardiac cath in 2007; CKD with with renal artery stenosis; congestive heart failure, EF 25% to 30% with permanent pacemaker/ defibrillator; history of depression; gastritis; dyspnea on exertion; dyslipidemia; gallstones; gout; hypertension; nephrolithiasis; obstructive sleep apnea; proteinuria, followed by Dr. Dunbar; diet-controlled type 2 diabetes without complications. MEDICATIONS: Home medications were reviewed with the patient: 1. Allopurinol 300 mg daily. 2. Eliquis 5 mg twice daily. 3. Atorvastatin 20 mg daily. 4. Clopidogrel 75 mg daily. 5. Irbesartan 300 mg daily. 6. Metoprolol 25 mg twice daily. 7. Nitroglycerin sublingual 0.4 mg every 5 minutes as needed. 8. Spironolactone 50 mg daily. 9. Cialis 10 mg daily as needed. ALLERGIES: NORVASC causes lower extremity edema. FAMILY HISTORY: Stroke, hypertension, hyperlipidemia, esophageal cancer in his mother. SOCIAL HISTORY: Former smoker, quit 40 years prior, rare alcohol, no drugs. . is present at the bedside. REVIEW OF SYSTEMS: As per HPI. Otherwise, all other systems negative. PHYSICAL EXAM: Vitals: 144/87, heart rate 65, respiratory rate is 16, he is 97 % on 4 liters, T-max is 97.8. Lying 30 degrees in bed. His cervical spine is immobilized. He has a drain from surgical site draining serosanguineous fluid. He has regular rate and rhythm. Soft, early 2/6 systolic ejection murmur loudest in the left upper sternal border. His lungs are clear. His abdomen is soft, nontender. Extremities are warm, well perfused. He is neurovascularly intact throughout. His oropharynx is clear. He has moist mucous membranes. He is alert and oriented x3. His cranial nerves II through XII are intact as could be tested. XIth cranial nerves difficult to test. LABORATORY DATA: Krcha-ea-smiy glucose 168. ASSESSMENT AND PLAN: This is a 67-year-old man with past medical history of coronary artery disease; obstructive sleep apnea, not using CPAP; gout; hypertension; atrial fibrillation, on anticoagulation, currently being held, status post anterior cervical diskectomy and fusion, postop day 0. 1. Postop day 0, care per primary team. 2. Atrial fibrillation, holding Plavix and Eliquis for 7 days postop. Continue metoprolol 25 mg twice daily, currently ordered. 3. Hypertension. Continue metoprolol and spironolactone, currently for known heart failure and hypertension holding irbesartan. We will restart when blood pressure tolerates. 4. Diabetes diet controlled. No intervention at this time. 5. Gout. Continue allopurinol. 6. DVT prophylaxis per primary team. Avoiding antiplatelets and blood thinners. [id number]/[facility] #: [id number] MTDD
--- NOTE | 2018-03-31 00:43 | OP ---
DATE OF OPERATION: 03/30/18 - ROOM #343 DATE OF : 50 SURGEON: Promise Rothman MD PROMOTIONAL MARKETING ANALYST: BENJI Fisher. The case was done with the assistance of a surgical PA because of the complexity of the case. ANESTHESIA: General. PRE-OP DIAGNOSES: 1. C5-6 degenerative disk disease. 2. Herniated nucleus pulposus. 3. Disk osteophyte complex causing neuroforaminal stenosis. POST-OP DIAGNOSES: 1. C5-6 degenerative disk disease. 2. Herniated nucleus pulposus. 3. Disk osteophyte complex causing neuroforaminal stenosis. OPERATIVE PROCEDURE: The patient underwent anterior cervical diskectomy and fusion at C5-6 with PEEK interbody cage with locally harvested bone graft and DBX and anterior instrumentation with Titanium plate and screws. ESTIMATED BLOOD LOSS: 75 cc. COMPLICATIONS: None. SUMMARY: The patient is a very pleasant 67-year-old gentleman with complains of neck pain radiating mostly to the right upper extremity with MRI finding consistent with degenerative disk disease at C5-6 with rightward disk osteophyte complex causing significant neuroforaminal stenosis. After failing conservative treatment modalities, he was offered the option of surgical intervention. After explaining the expectations, limitations and possible complications of the procedure to the patient and his with complications including, but not limited to bleeding, infection, risk of injury to adjacent structures, coma, paralysis, , need for additional procedures, anesthesia risk, stroke, blindness, cancer, instability, hardware failure, adjacent level disease, pseudoarthrosis, recurrent laryngeal nerve injury, CSF leak, Vianney syndrome, need for temporary or permanent tracheostomy, or gastrostomy, anesthesia risk, prolonged ICU stay and heart attack, the patient was agreeable to proceed with surgery. Informed consent was obtained. He understood that his condition may not improve, in fact may get worse after surgery and that he may need to have additional procedure in the future. He also understood that the operative plan will be modified according to intraoperative findings and conditions. DESCRIPTION OF PROCEDURE: The patient was brought to the operating room and was placed under general anesthesia by the anesthesia team. He was carefully positioned supine on the regular table and all bony prominences were meticulously padded. His skin was prepped and draped in the standard fashion. After appropriate surgical pause and patient identification, a small right transverse paramedian incision was made on the skin after confirming the appropriate surgical level with intraoperative fluoroscopic imaging. The skin was infiltrated with local anesthetic prior to the incision. The incision was carried down to the subcutaneous tissue with Bovie cautery and the skin was gently undermined. The platysma was divided with sharp dissection and Bovie cautery and was gently undermined. The plane between the medial border of the sternocleidomastoid and the medial structures was gently developed and the omohyoid was isolated gently and was divided with the use of Bovie cautery. The prevertebral fascia was then gently opened and the anterior part of the spine was identified. Appropriate surgical level was confirmed with intraoperative fluoroscopic imaging. Two Thicket pins were placed in the vertebral bodies of C5 and C6 as well as self-retaining retractors were introduced into the field. A diskectomy was performed after incising the annulus fibrosus with #15 surgical blade. Diskectomy was carried out with the use of pituitary rongeurs, curettes, Kerrison punches and high-speed drill. Under microscopic magnification, the end plates were prepared. The posterior ligament was divided and bilateral foraminotomies were performed with the use of a high speed drill and Kerrison punches while locally harvested bone graft during the disk space preparation was saved for use at the arthrodesis part of the case. After appropriate sizing, a 9 mm Medtronic PEEK interbody cage was inserted after being filled with locally harvested bone graft and DBX putty. A 19 mm ZEVO Medtronic Titanium plate was placed and secured on C5 and C6 vertebral bodies with 13 mm length Titanium screws. After the self-retaining retractors were removed as well as the Thicket pins and after confirmation of meticulous hemostasis and copious irrigation and meticulous inspection, the wound was closed by layers after placing a #7 TIMUR drain through a separate stab wound incision. The incision was closed by layers with 2-0 interrupted Vicryl sutures to approximate the platysma, while inverted interrupted 2-0 sutures were used to approximate the subcutaneous tissue, the skin was covered with Dermabond. At the end of the procedure, all counts were reported to be correct. The patient remained hemodynamically stable throughout the case. He was then transferred to Recovery in excellent condition. The case was done with the assistance of the surgical PA because of the complexity of the case. [id number]/[facility] #: [id number] ANDRE
[2018-03-31] MEDS: Metoclopramide IV* 5 MG/ML 2 ML VIAL IV PRN ×2 (07:58→15:37)
[2018-03-31] MEDS ORDERED: Atorvastatin* 20 MG TAB PO SCH (09:00)
[2018-03-31] MEDS: Losartan TAB* 25 MG PO SCH (09:19)
[2018-03-31] MEDS: Spironolactone TAB* 25 MG PO SCH (09:19)
[2018-03-31] MEDS: Allopurinol TAB* 300 MG PO SCH (09:19)
[2018-03-31] MEDS: Metoprolol Succinate XL TAB* 25 MG PO SCH ×2 (09:19→20:48)
--- NOTE | 2018-03-31 11:19 | RAD ---
Indication: Postop anterior core decompression and fusion at C5-C6. Comparison: February 20, 2018 MRI. Technique: AP, open-mouth odontoid, and lateral views cervical spine. Report: Anterior cortical plate and vertebral body screws span the C5-C6 interval with intervening metallic markers consistent with bone graft. Normal vertebral alignment. No fracture evident. Prevertebral soft tissue swelling and gas. IMPRESSION: #. Unremarkable immediate postop exam following anterior C5-C6 core decompression and fusion.
[2018-03-31] MEDS ORDERED: LORazepam TAB(*) 0.5 MG ONE (12:19)
[2018-03-31] MEDS ORDERED: LORazepam TAB(*) 0.5 MG PO ONE (12:30)
--- NOTE | 2018-03-31 14:15 | PN ---
Progress Note - Progress Note Date of Service: 03/31/18 SOAP: Subjective: [] No events ON other than mild nausea with pain medications. Tolerated procedure well yesterday. Voids, Ambulates. Preop RUE pain resolved Objective: []VSS, Afebrile. Wound s,c,d TIMUR drain output noted. Drain was removed, catheter appeared to be intact. Patient tolerated procedure well. AAOx3, DASIA, CN II-XII grossly intact Motor 5/5 all extremities Sensory grossly intact to light touch. Assessment: []67 yom POD#1 ACDF C 5-6 Plan: []Monitor VS, Neurochecks Encourage ambulation. May dc later today or in am if tolerates po well and has no nausea. Appreciate IM care Krishan Rothman MD
--- NOTE | 2018-03-31 16:03 | PN ---
Subjective Date of Service: 03/31/18 Interval History: nausea yesterday evening with emesis not better with zofran. Slept overnight but nausea again this AM mildly better with reglan then abated with ativan. Otherwise feels well. Notes this is similar to past surgeries because "it takes awhile for me to get rid of anesthesia" and also he had not eaten in 2 days Intermittent bigeminy noted on tele Objective Active Medications: Acetaminophen (Tylenol Tab*) 650 mg PO Q4H PRN PRN Reason: PAIN Hydrocodone Bitart/Acetaminophen (Elmo 5-325 Tab*) 2 tab PO Q4H PRN PRN Reason: marked pain Allopurin[facility] ([facility]oprim [facility]*) [facility] Admin: 03/31/18 09:19 Dose: 300 mg Atorvastatin Calcium (Lipitor*) 20 mg PO MoWeFr@0900 [facility] Last Admin: 03/31/18 09:19 Dose: 20 mg Lactated Ringer's (Lactated Ringers 1000 Ml Bag*) 1,000 mls @ 60 mls/hr IV PER RATE [facility] Last Admin: 03/30/18 06:41 Dose: 60 mls/hr Lactated Ringer's (Lactated Ringers 1000 Ml Bag*) 1,000 mls @ 75 mls/hr IV .per rate [facility] Last Admin: 03/31/18 05:54 Dose: 75 mls/hr Losartan Potassium (Cozaar Tab*) [facility] Last Admin: 03/31/18 09:19 Dose: 100 mg Magnesium Hydroxide (Milk Of Magnesia Liq*) 30 ml PO DAILY PRN PRN Reason: CONSTIPATION Metoclopramide HCl (Reglan Iv*) 10 mg IV Q6H PRN PRN Reason: NAUSEA/VOMITING Last Admin: 03/31/18 15:37 Dose: 10 mg Metoprolol Succinate (Toprol Xl Tab*) 25 mg PO BID [facility] Last Admin: 03/31/18 09:19 Dose: 25 mg Ondansetron HCl (Zofran Inj*) 4 mg IV Q6H PRN PRN Reason: NAUSEA/VOMITING Last Admin: 03/30/18 16:35 Dose: 4 mg Spironolactone (Aldactone Tab*) [facility] [place] Last Admin: 03/31/18 09:19 Dose: 25 mg Throat Lozenges (Chloraseptic Hang*) 1 hang PO Q2H PRN PRN Reason: SORE THROAT Last Admin: 03/30/18 21:03 Dose: 1 hang Vital Signs - 8 hr 03/31/18 03/31/18 03/31/18 08:00 11:45 12:09 Temperature 98.0 F 98 F Pulse Rate 67 67 Respiratory 16 16 16 Rate Blood Pressure 116/60 116/60 (mmHg) O2 Sat by Pulse 96 98 98 Oximetry 03/31/18 03/31/18 03/31/18 12:25 14:33 15:27 Temperature 97.9 F Pulse Rate 70 Respiratory 14 14 16 Rate Blood Pressure 116/59 (mmHg) O2 Sat by Pulse 96 Oximetry Oxygen Devices in Use Now: None Appearance: sitting up in bed, c-collar in place Ears/Nose/Mouth/Throat: NL Teeth, Lips, Gums, Clear Oropharnyx Neck: NL Appearance and Movements; NL JVP Respiratory: Symmetrical Chest Expansion and Respiratory Effort, Clear to Auscultation Cardiovascular: RRR Neurological: Alert and Oriented x 3 Assess/Plan/Problems-Billing Assessment: 67 yo M h/o afib, CAD/CABG, sCHF (ef 25%), diet controlled DM2 POD 1 ACDF - Patient Problems (1) Bigeminy Comment: underlying heard disease check K and Mag. Will replete K>4 and Mg >2 if low otherwise on beta ed and no other intervention needed (2) Nausea Comment: post op related Good success with reglan Can use zofran in addition up 24mg per day. Occasionally pt's have better relief with 8mg Q8hrs if needed. (3) Afib Comment: restart xarelto when deemed safe by primary team c/w metoprolol (4) Systolic and diastolic CHF, chronic Comment: compensated Noted here to caution if fluids are administered I discontinued standing LR now (5) Hypertension Comment: controlled losartan, aldactone, metoprolol
[2018-03-31 16:38] LABS: EGFR Non-African American 62.8 (>60)
[2018-03-31] MEDS ORDERED: Magnesium Sulfate 2 GM IV* 2 GM/50 ML BAG IVPB ONE (17:25)
[2018-04-01 07:33] VITALS: BP 118/57
[2018-04-01] MEDS: Metoprolol Succinate XL TAB* 25 MG PO SCH (07:36)
[2018-04-01] MEDS: Spironolactone TAB* 25 MG PO SCH (07:36)
[2018-04-01] MEDS: Losartan TAB* 25 MG PO SCH (07:36)
[2018-04-01] MEDS: Allopurinol TAB* 300 MG PO SCH (07:36)
--- NOTE | 2018-04-01 09:13 | PN ---
Progress Note - Progress Note Date of Service: 04/01/18 SOAP: Subjective: [S/p ACD F C5-6, POD#2. Patient feeling well this morning, nausea resolved. Eating and drinking without difficulty. Mild neck soreness, not taking pain medications. Upper extremity symptoms improved. Denies headache.] Objective: [ Vital Signs: Temp Pulse Resp BP Pulse Ox 99.6 F 61 16 118/57 96 04/01/18 07:28 04/01/18 07:28 04/01/18 07:36 04/01/18 07:28 04/01/18 07:36 General: Alert and sitting up in bed, NAD. [place] J collar in place. Neuro: Motor and sensory intact. Incision: Intact and no swelling, erythema. Dressing in place. ] Assessment: [Satisfactory post-op. Nausea resolved. Minimal pain.] Plan: [1. Discharge home today. 2. Discharge instructions discussed with the patient. ]
== END 2018-04-01 09:40 | disposition home or self-care (01) | DRG 23 ==
LOC: AA 05:55 → SSU 13:03
PROVIDERS: ADMIT Neurological Surgery; ATTEND Internal Medicine
PROC: 0RB30ZZ Excision of Cervical Vertebral Disc, Open Approach (ICD-10-PCS; 2018-03-30)
PROC: 0RG10A0 Fusion of Cervical Vertebral Joint with Interbody Fusion Device, Anterior Approach, Anterior Column, Open Approach (ICD-10-PCS; principal; 2018-03-30 07:30)
DX: M50.122 Cervical disc disorder at C5-C6 level with radiculopathy (principal); I42.9 Cardiomyopathy, unspecified; I13.0 Hypertensive heart and chronic kidney disease with heart failure and stage 1 through stage 4 chronic kidney disease, or unspecified chronic kidney disease; I50.42 Chronic combined systolic (congestive) and diastolic (congestive) heart failure; M47.892 Other spondylosis, cervical region; I25.10 Atherosclerotic heart disease of native coronary artery without angina pectoris; E78.5 Hyperlipidemia, unspecified; M25.78 Osteophyte, vertebrae; I48.0 Paroxysmal atrial fibrillation; E66.9 Obesity, unspecified; I08.3 Combined rheumatic disorders of mitral, aortic and tricuspid valves; G47.33 Obstructive sleep apnea (adult) (pediatric); E11.22 Type 2 diabetes mellitus with diabetic chronic kidney disease; I70.1 Atherosclerosis of renal artery; M47.897 Other spondylosis, lumbosacral region; M10.9 Gout, unspecified; M48.02 Spinal stenosis, cervical region; N18.3 Chronic kidney disease, stage 3 (moderate); F32.9 Major depressive disorder, single episode, unspecified; Z88.8 Allergy status to other drugs, medicaments and biological substances; Z95.1 Presence of aortocoronary bypass graft; Z87.442 Personal history of urinary calculi; Z95.5 Presence of coronary angioplasty implant and graft; Z82.3 Family history of stroke; Z82.49 Family history of ischemic heart disease and other diseases of the circulatory system; Z82.0 Family history of epilepsy and other diseases of the nervous system; Z87.891 Personal history of nicotine dependence; Z95.0 Presence of cardiac pacemaker; Z68.32 Body mass index [BMI] 32.0-32.9, adult; I25.2 Old myocardial infarction; Z72.89 Other problems related to lifestyle; M51.37 Other intervertebral disc degeneration, lumbosacral region; R11.2 Nausea with vomiting, unspecified; M47.817 Spondylosis without myelopathy or radiculopathy, lumbosacral region
CPT/HCPCS: 36415; 72040; 76001; 80048; 83735; 90686; A9270-GY; C1713; C1776; C9359; J0690; J1100; J2001; J2250; J2405; J2704; J2765; J3010; J3475

== ENCOUNTER 2018-11-01 10:03 | Day surgery (SDC) | payer BC ==
[~2018-11-01 10:03] MED LIST changes: +Acetaminophen TAB* 325 MG PO PRN; -Buffered Lidocaine 0.9% SYRIN* 5 ML/SYR SYRINGE INTRADERM ONE; +Buffered Lidocaine 1% SYRIN* 1 ML/SYRINGE INTRADERM ONE
[2018-11-01] MEDS ORDERED: Midazolam* 1 MG/ML 5 ML VIAL (5 MG) ONE (12:48)
[2018-11-01] MEDS ORDERED: fentaNYL* 50 MCG/ML 2 ML VIAL (100 MCG VIAL) ONE (13:17)
[2018-11-01] MEDS ORDERED: Propofol* 10 MG/ML 20 ML BTL ONE (13:19)
[2018-11-01] MEDS ORDERED: Cyclopentolate 1% OPTH.SOL* 2 ML BTL ONE (13:51)
[2018-11-01] MEDS ORDERED: Phenylephrine OPHTH SOL 2.5%* 2 ML ONE (13:51)
[2018-11-01] MEDS ORDERED: Neomycin/Polymy/Dex OPTH.SUSP* MAXITROL 0.1% 5 ML ONE (13:51)
[2018-11-01] MEDS ORDERED: acetaZOLAMIDE TAB* 250 MG ONE (13:51)
[2018-11-01] MEDS ORDERED: Lidocaine 1%* 5 ML VIAL ONE (13:51)
[2018-11-01] MEDS ORDERED: Povidone Iodine 5% OPTH* 30 ML BTL ONE (13:51)
[2018-11-01] MEDS ORDERED: Lidocaine 2% EPI 1:200000 MPF*10-20 ML VIAL ONE (13:51)
[2018-11-01] MEDS ORDERED: Ketorolac 0.5% OPHTH (NF) 0.5 % 5 ML BTL ONE (13:51)
[2018-11-01] MEDS ORDERED: Proparacaine 0.5% OPHTH.SOL* 15 ML BTL ONE (13:52)
[2018-11-01 13:54] VITALS: BP 109/66
--- NOTE | 2018-11-01 14:02 | OP ---
OPERATIVE NOTE: DATE OF OPERATION: 11/01/18 DATE OF : 50 SURGEON: Carlin Borden M.D. PREOPERATIVE DIAGNOSIS: Cataract, right eye. POSTOPERATIVE DIAGNOSIS: Cataract, right eye. OPERATIVE PROCEDURE: Extracapsular cataract extraction with intraocular lens implant right eye. PROCEDURE: The patient was brought to the operating room after being given 1/2% Alcaine with epineph rine drops in the preoperative area. The eye was prepped and draped in the usual sterile fashion. S terile drape and eyelid speculum were placed. Again, topical 1/2% Alcaine with epinephrine was given . A paracentesis incision was made at the 9 o'clock position with the No.75 blade. Clear cornea inc ision 2.2 x 2.2-mm was created at the 12 o'clock position starting at the anterior limbus using the 2 .2-mm keratome. The anterior chamber was irrigated with 0.4 mL of 1% non-preservative intracameral l idocaine and filled with DisCoVisc. A capsulorrhexis was completed using the cystotome and the Utrat a forceps. Hydrodissection was performed with balanced salt solution. The lens nucleus was removed w ith the Phacoemulsification handpiece without incident. Cortex was removed with the irrigation-aspir ation handpiece. The capsular bag was re-inflated using DisCoVisc and an [id number] 20 implant was inser ben with the shooter. The irrigation-aspiration handpiece was used to remove all residual DisCoVisc. The eye was refilled with balanced salt solution and the wound checked and found to be watertight. Topical Maxitrol drops were given. [id number]/[facility] #: [id number]
== END 2018-11-01 13:47 | disposition home or self-care (01) ==
LOC: OREAST 10:03
PROVIDERS: ATTEND Specialist
DX: H25.811 Combined forms of age-related cataract, right eye (principal); H04.123 Dry eye syndrome of bilateral lacrimal glands; I25.10 Atherosclerotic heart disease of native coronary artery without angina pectoris; Z95.0 Presence of cardiac pacemaker; I49.8 Other specified cardiac arrhythmias; Z95.5 Presence of coronary angioplasty implant and graft; Z95.1 Presence of aortocoronary bypass graft; E78.00 Pure hypercholesterolemia, unspecified; Z87.891 Personal history of nicotine dependence; Z79.01 Long term (current) use of anticoagulants
CPT/HCPCS: A9270-GY; J2250; J2704; J3010; V2632

== ENCOUNTER 2018-11-08 09:22 | Day surgery (SDC) | payer BC ==
[2018-11-08] MEDS ORDERED: Neomycin/Polymy/Dex OPTH.SUSP* MAXITROL 0.1% 5 ML ONE (11:27)
[2018-11-08] MEDS ORDERED: Lidocaine 1%* 5 ML VIAL ONE (11:27)
[2018-11-08] MEDS ORDERED: Proparacaine 0.5% OPHTH.SOL* 15 ML BTL ONE (11:27)
[2018-11-08] MEDS ORDERED: Cyclopentolate 1% OPTH.SOL* 2 ML BTL ONE (11:27)
[2018-11-08] MEDS ORDERED: acetaZOLAMIDE TAB* 250 MG ONE (11:27)
[2018-11-08] MEDS ORDERED: Povidone Iodine 5% OPTH* 30 ML BTL ONE (11:27)
[2018-11-08] MEDS ORDERED: Phenylephrine OPHTH SOL 2.5%* 2 ML ONE (11:27)
[2018-11-08] MEDS ORDERED: Lidocaine 2% EPI 1:200000 MPF*10-20 ML VIAL ONE (11:27)
[2018-11-08] MEDS ORDERED: Ketorolac 0.5% OPHTH (NF) 0.5 % 5 ML BTL ONE (11:27)
[2018-11-08] MEDS ORDERED: fentaNYL* 50 MCG/ML 2 ML VIAL (100 MCG VIAL) ONE (11:36)
[2018-11-08] MEDS ORDERED: Midazolam* 1 MG/ML 2 ML VIAL (2 MG) ONE (11:36)
[2018-11-08 12:57] VITALS: BP 110/59
--- NOTE | 2018-11-08 15:02 | OP ---
AMENDED REPORT NOW INCLUDES DATE OF OPERATION DATE OF OPERATION: 11/08/18 - [facility] DATE OF : 50 SURGEON: Carlin Borden M.D. PREOPERATIVE DIAGNOSIS: Cataract, left eye. POSTOPERATIVE DIAGNOSIS: Cataract, left eye. OPERATIVE PROCEDURE: Extracapsular cataract extraction with intraocular lens implant left eye. DESCRIPTION OF PROCEDURE: The patient was brought to the operating room after being given 1/2% Alcaine with epinephrine drops in the preoperative area. The eye was prepped and draped in the usual sterile fashion. Sterile drape and eyelid speculum were placed. Again, topical 1/2% Alcaine with epinephrine was given. A paracentesis incision was made at the 3 o'clock position with the No.75 blade. Clear cornea incision 2.2 x 2.2-mm was created at the 6 o'clock position starting at the anterior limbus using the 2.2-mm keratome. The anterior chamber was irrigated with 0.4 mL of 1% non-preservative intracameral lidocaine and filled with DisCoVisc. A capsulorrhexis was completed using the cystotome and the Utrata forceps. Hydrodissection was performed with balanced salt solution. The lens nucleus was removed with the Phacoemulsification handpiece without incident. Cortex was removed with the irrigation-aspiration handpiece. The capsular bag was re-inflated using DisCoVisc and an SN60WF 19.5 implant was inserted with the shooter. The irrigation-aspiration handpiece was used to remove all residual DisCoVisc. The eye was refilled with balanced salt solution and the wound checked and found to be watertight. Topical Maxitrol drops were given. [id number]/[facility] #: [id number] [facility]ENT[facility]aira
== END 2018-11-08 13:10 | disposition home or self-care (01) ==
LOC: OREAST 09:22
PROVIDERS: ATTEND Specialist
DX: H25.812 Combined forms of age-related cataract, left eye (principal); H04.123 Dry eye syndrome of bilateral lacrimal glands; E11.9 Type 2 diabetes mellitus without complications; Z79.84 Long term (current) use of oral hypoglycemic drugs; Z95.1 Presence of aortocoronary bypass graft; Z87.891 Personal history of nicotine dependence; I25.10 Atherosclerotic heart disease of native coronary artery without angina pectoris; I25.2 Old myocardial infarction; Z95.5 Presence of coronary angioplasty implant and graft; N18.9 Chronic kidney disease, unspecified; G47.33 Obstructive sleep apnea (adult) (pediatric)
CPT/HCPCS: A9270-GY; J2250; J3010; V2632

== ENCOUNTER → 2019-04-17 08:19 | Day surgery (SDC) | payer BC ==
[~2019-04-17 08:19] MED LIST changes: -Acetaminophen TAB* 325 MG PO PRN; -Buffered Lidocaine 1% SYRIN* 1 ML/SYRINGE INTRADERM ONE; +DOXYcycline CAP(*) 100 MG PO ONE; +Diazepam TAB(*) 5 MG ONE; +Heparin 2 UNITS/ML IVPREMIX* 2,000 ML IV ONE; +Heparin(*) 1000 UNIT/ML 10 ML VIAL CATH LAB IV ONE; +Iodixanol 320 (CONTRAST) 100 ML SDV ONE; +Isosorbide Mononitrate ER TAB* 30 MG PO ONE; +Lidocaine 1% INJ* 10 MG/ML 30 ML SDV ONE; +Midazolam* 1 MG/ML 5 ML VIAL (5 MG) ONE; +NS 0.9% 1000 ML** 1,000 ML IV SCH; +VERAPAMIL 2.5 MG/ML 2 ML VIAL ** 5 mg/2 ml ONE; +diPHENhydraMINE PO* 25 MG ONE; +fentaNYL* 50 MCG/ML 2 ML VIAL (100 MCG VIAL) ONE; +nitroGLYCERIN DRIP* 0 MCG/0 ML BTL ONE
[2019-04-17 15:04] VITALS: BP 120/59
--- NOTE | 2019-04-17 19:54 | CONS ---
CC: Dr. De León; Dr. Smallwood * CONSULTATION REPORT: DATE OF CONSULT: 04/17/19 - [facility] CATH CONSULTING PHYSICIAN: Dr. Meng. REQUESTING PHYSICIAN: Dr. Rayshawn De León. PRIMARY CARE PHYSICIAN: Dr. Smallwood. REASON FOR CONSULT: Tick embedded in the patient's posterior thigh was found during his holding area at the cardiac lab specialist. HISTORY OF PRESENT ILLNESS: This is a 68-year-old male who reported for his outpatient elective cardiac cath scheduled by Dr. Rayshawn De León today. During his intake at the cardiac cath holding area, the patient was found to have a tick embedded in his posterior left inner thigh and was not aware of it. He could not give the duration of it. I was asked to assess the patient for the tick bite removal and treatment/prophylaxis. The patient denies awareness of his tick bite. Denies even pruritus at the site. He does have known history of Lyme disease, he tells me 2 years ago and he was treated. No neck stiffness. No headache. No malaise. No joint stiffness. Denies any rash at this time. PAST MEDICAL HISTORY: 1. History of cataract surgery. 2. Hypertension. 3. Gout. 4. Hyperlipidemia. 5. 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 6. Coronary artery disease, status post stents. 7. CABG x2. MEDICATIONS: 1. Allopurinol 300 daily. 2. Lipitor 20 daily. 3. Plavix 75 daily. 4. Avapro 150 daily. 5. Metoprolol 25 b.i.d. 6. Nitroglycerin p.r.n. 7. Aldactone 12.5 daily. ALLERGIES: Allergic to AMLODIPINE. FAMILY HISTORY: Noncontributory. SOCIAL HISTORY: He is . 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 Currently retired. Former smoker. Occasional wine drinker. PHYSICAL EXAM: Temperature is 97.9, pulse 61, respiratory rate 17, blood pressure 120/59. General: Awake, alert, oriented, pleasant, follows command. No nuchal rigidity. No motor or focal sensory deficit. His skin reveals no obvious rash, no target lesion. He does have tick embedded in his left posterior thigh. Lungs: Clear to auscultation bilaterally. Cardiovascular: S1 , S2. Regular rate and rhythm. IMPRESSION AND PLAN: This is a 68-year-old male, was seen at the cardiac cath area for a tick bite embedded. Alcohol swab was applied with gently and smoothly rubbing the tick until its head became amenable for extraction and using a forceps, the tick bite was removed intact with the head in place, was put in a specimen cup and labelled and requested to send to the lab for testing. Doxycycline 200 mg p.o. x1 dose was provided and the goal was to sent the tick for testing for Lyme disease. Shortly after sending the tick to the lab, I was notified that they do not test the tick anymore at this facility, I asked to speak with the cloth winding supervisor multiple times throughout the day and was not able to receive an answer. When calling later, they told me that they disregard the tick from the micro lab. Therefore, at this time, I will ask that the patient to follow up with his primary, which I did, in 1 to 2-3 days and please to have him either patient tested in about 2 weeks for IgG, IgM versus treat them empirically with a doxycycline course. I will leave that to discretion of his primary. [id number]/[facility] #: [id number] ANDRE
--- NOTE | 2019-04-18 12:05 | CATH ---
CC: Dr. Juan Francisco Kimble, [facility]; Dr. Miryam Smallwood, [facility] * CARDIAC CATHETERIZATION REPORT: DATE OF PROCEDURE: 04/17/19 - [facility] CATH INDICATION FOR THE PROCEDURE: Asked by Dr. Juan Francisco Kimble to perform cardiac catheterization on the patient in light of decreasing left ventricular systolic function with a known history of coronary artery disease, bypass surgery and stents placement in the past. PROCEDURE: Coronary arteriography, vein graft arteriography to obtuse marginal branch, vein graft arteriography to the right coronary artery, left heart catheterization and left ventriculography. CONSENT: The patient was interviewed and examined in the holding area with the risks and benefits were explained. He understood them and wished to proceed. APPROACH UTILIZED: Due to the fact that the he had a left coronary artery bypass graft that appeared to be somewhat high in takeoff, the decision was made to attempt a right femoral artery approach. PRECARDIAC CATHETERIZATION LABORATORY RESULTS: Hemoglobin and hematocrit of 15.6 and 45, platelet count of 190,000, BUN of 27, creatinine 1.3. EQUIPMENT UTILIZED: 1. Sheath placement was a 5-Slovak Elicia 11 cm sheath. 2. Diagnostic coronary catheters were an FL4 curved left coronary catheter of 5 - Slovak and a FR4 curved 5-Slovak right coronary catheter. 3. The wire utilized was a J-tipped exchange wire. 4. Left heart catheterization catheter was a 5-Slovak PIG 145 cm angled catheter. 5. Closure device utilized was an Angio-Seal Evolution closure device. MEDICATIONS GIVEN DURING THE CATHETERIZATION: Included: 1. Valium 2.5 mg. 2. Benadryl 12.5 mg. 3. Fentanyl 25 mcg. 4. 1% lidocaine. DESCRIPTION OF PROCEDURE: The patient was brought to the cardiovascular laboratory where a formal time-out was performed. He was prepped and draped in sterile fashion and the right femoral artery was cannulated and the sheath was placed. Coronary arteriography was performed followed by left heart catheterization and left ventriculography. An injection was made into the right femoral sheath to see the eligibility to use the closure device. Of note , the stick was noted to be slightly high above the rim of the pelvis and as such a decision was made to utilize an Angio-Seal device. An initial attempt was made by myself to deploy a 6- Slovak Angio-Seal, but because of a kink in the guidewire, I was unable to deliver this. At that point, I had asked Dr. Alejandro Boyd (interventional radiologist) to help me with deploying another Angio-Seal. At that point, he utilized a stiffer wire and used an Amplatz wire which was able to deliver the Angio-Seal and seal the artery. Hemostasis was obtained. The total contrast used was 120 cc of Visipaque dye. The radiation exposure included 13 minutes of fluoro time. The air kerma radiation was 1817 milligray. The DAP radiation was 12,406 microgray per meter squared. RESULTS: HEMODYNAMIC DATA: Left heart catheterization revealed central aortic pressure recorded at 151/ 73 with a mean of 106, left ventricular pressure 150 over the left ventricular end-diastolic pressure of 22. CORONARY ARTERIOGRAPHY: A. Left coronary artery: 1. Left main - widely patent. 2. Left anterior descending artery - the left anterior descending artery had a mid lesion noted of approximately 65% to 70%. It was not significantly different compared to the films of 2014. The LAD supplied multiple thin diagonal branches that were small in caliber with moderate disease. The LAD extended to the apical region and to the distal inferior wall. The proximal portion of the LAD had a tapering prior to the stented area of 30% to 35% from the main segment of the left anterior descending artery. No significant lesion was seen in that area. Of note, collateral blood flow is seen via the septal perforators to the PDA of the right coronary artery as well as from the distal circumflex to the right coronary artery. 3. Circumflex artery - a nondominant vessel supplying a thin first obtuse marginal branch followed by a stented area from which a very small short obtuse marginal branch originated. Following the stent was a mid obtuse marginal branch and the vessel continued ending in 2 low-lying posterior left ventricular branches. There was a mild proximal lesion of 25% to 30%. There was no significant instant restenosis seen in the circumflex stent. Of note, the flow in the very thin obtuse marginal branch originating from the stented area was present, but short in nature and slow, possibly limited in its flow. Of note, this is a not a vessel that could be intervened on. B. Right coronary artery - totally occluded in its proximal to mid portion and extremely small in caliber. VEIN GRAFT ARTERIOGRAPHY TO OBTUSE MARGINAL BRANCH: The vein graft is widely patent. There was a valve area that shows a mild 20 % to 25% narrowing. The vein graft tapers at its anastomosis with the circumflex, which supplied obtuse marginal branch, which is a small caliber vessel. No focal stenosis of significance is noted. VEIN GRAFT ARTERIOGRAPHY TO THE RIGHT CORONARY ARTERY: Totally occluded at its ostium. LEFT VENTRICULOGRAPHY: Performed in the SHEIKH projection revealed mild global hypokinesis with mid inferior wall moderate to severe hypokinesis. The overall EF estimated at 40% to 45%. No significant mitral regurgitation was noted. OVERALL ASSESSMENT: Mild to moderate left ventricular systolic dysfunction as described with focal wall motion abnormality to the mid inferior wall. Of note, left ventricular function appeared to be somewhat similar to what was present back in 2014 with respect to the mid inferior wall with severe hypokinesis. No significant instant restenosis into the body of the circumflex. Of note, there was a total occlusion of the vein graft to the right coronary artery that had been stented with 76 mm of drug-eluting stent back in 2013. Prior stents that were placed in the vein graft to the circumflex in the distal past showed no significant instant restenosis. Medical management will be pursued. The patient will be started on Imdur therapy to help dilate collaterals from both the circumflex and the LAD to the right coronary artery distal vessel. This information we shared with Dr. Juan Francisco Kimble, the patient's primary transmitter operator, who will be following the patient out for further ongoing management of his left ventricular dysfunction and coronary artery disease. [id number]/[facility] #: [id number] MTDD
== END | disposition home or self-care (01) ==
LOC: CHICATH 08:19
PROVIDERS: ATTEND Internal Medicine Cardiovascular Disease
DX: I25.118 Atherosclerotic heart disease of native coronary artery with other forms of angina pectoris (principal); R06.00 Dyspnea, unspecified; I48.0 Paroxysmal atrial fibrillation; R42 Dizziness and giddiness; I50.9 Heart failure, unspecified; Z95.0 Presence of cardiac pacemaker; I25.2 Old myocardial infarction; Z87.891 Personal history of nicotine dependence; E78.00 Pure hypercholesterolemia, unspecified; I42.9 Cardiomyopathy, unspecified
CPT/HCPCS: 93458; A9270-GY; C1760; C1769; C1887; J1644; J2250; J3010

== ENCOUNTER 2019-07-18 07:09 | Day surgery (SDC) | payer MEDICARE ==
--- NOTE | 2019-07-11 13:25 | HP ---
CC: Dr. Juan Francisco Kimble; Dr. Miryam Smallwood * PREOPERATIVE HISTORY AND PHYSICAL: DATE OF ADMISSION/SURGERY: 07/18/19 This patient is scheduled for same-day surgery admission by Dr. Delong on 07/18/19. DATE OF PREOPERATIVE HISTORY AND PHYSICAL EXAMINATION: 07/11/19 ATTENDING SURGEON: Dr. Donavon Delong * (dictated by Miryam Espinoza, KATY) CHIEF COMPLAINT: Gallstones. HISTORY OF PRESENT ILLNESS: The patient is a 68-year-old male referred to Dr. Delong by his primary care provider for evaluation of chronic "upset stomach." The patient described a month in March 2019 of daily pain in the right and left upper quadrants of the abdomen that was nonradiating and associated with decreased appetite and occasional nausea, vomiting, and bloating. Aggravating features seem to be eating fatty foods; he denied any dark urine or sean- colored stools. He had an ultrasound which revealed gallstones. The patient has a significant cardiac history with previous myocardial infarctions, ischemic cardiomyopathy, paroxysmal atrial fibrillation, sinus node dysfunction , coronary artery disease, and nonsustained VT. He is followed by Dr. Kimble from Cardiology and has been recently cleared to proceed with the recommended laparoscopic cholecystectomy. Please see Dr. Kimble's office note from 07/05/[address] Delong described the nature of laparoscopic cholecystectomy and also plans to do an open repair of an umbilical hernia that was found on recent exam; Dr. Delong described the relevant risks and benefits and today, I reviewed the typical postoperative care and recovery. The patient has had a chance to ask questions and stated that he understands the information and is satisfied with the answers given to his questions. He will sign surgical consent on the day of surgery. PAST MEDICAL HISTORY: 1. Myocardial infarction at age 39 and then a second myocardial infarction approximately 6 years ago. 2. Ischemic cardiomyopathy. 3. Paroxysmal atrial fibrillation. 4. Nonsustained V-tach. 5. Coronary artery disease. 6. Hypertension. 7. Hyperlipidemia. 8. Obesity. 9. Sleep apnea. 10. Gout. 11. He also has implanted ICD which was placed for nonsustained V-tach, September 2018 at [place]. PAST SURGICAL HISTORY: 1. Coronary artery bypass graft at age 39. 2. Coronary artery stenting 5 years ago. 3. Anterior cervical diskectomy and fusion 2017. 4. Implanted defibrillator September 2018. 5. Surgery for kidney stones on 2 separate occasions. MEDICATIONS: 1. Eliquis 5 mg p.o. b.i.d. and he will take his last dose on 07/15/19 in preparation for surgery. 2. Crestor 10 mg 2 tablets daily. 3. Isosorbide mononitrate ER 30 mg p.o. daily. 4. Irbesartan 75 mg 2 tablets p.o. daily. 5. Metoprolol ER 25 mg 1 tablet p.o. b.i.d. 6. Spironolactone 25 mg p.o. daily. 7. Clopidogrel 75 mg p.o. daily and he will take his last dose on 07/12/19 in preparation for surgery. 8. Allopurinol 300 p.o. daily. 9. Pepcid 20 mg p.r.n. at night. 10. Nitrostat 0.4 mg 1 tablet sublingual every 5 minutes up to 3 doses as needed, none recently. 11. Aspirin 81 mg p.o. daily and he is to start that while he is off the clopidogrel and Eliquis as advised by Dr. Kimble. ALLERGIES: NORVASC caused leg swelling. FAMILY HISTORY: Mother due to stroke. Father due to heart disease. No known anesthesia complications, bleeding tendencies, or clotting disorders. SOCIAL HISTORY: He is and is retired. He is a former smoker, 2 packs a day for 10 years, quit 1975. He consumes 1 to 2 glasses of wine per week. He denies the use of other substances. REVIEW OF SYSTEMS: Constitutional: No fevers, chills, excessive fatigue, or weight loss. General: No history of deep vein thrombosis or pulmonary embolism. No unusual bleeding while on anticoagulation. No previous blood transfusions. He states that because he is a redhead that he has had difficulty being put under anesthesia and also slow to come out of anesthesia. Endocrine: No known thyroid disease. He was told in the past that he was prediabetic. A recent fasting blood sugar was 127. Respiratory: No dyspnea on exertion, although he is limited by back pain. He is currently doing cardiac rehab and has been able to do the stepper and recumbent bike for 15 minutes each. Cardiovascular: As previously mentioned, history of myocardial infarction, coronary artery bypass grafting, ischemic cardiomyopathy, paroxysmal atrial fibrillation, nonsustained V-tach, sinus node dysfunction, coronary artery disease, implanted defibrillator and he is followed by Dr. Kimble and has been cleared to proceed with the recommended surgery. Nuclear stress test, 05/18/19, revealed no change since the previous exam. The ejection fraction was 48% and there was a large fixed defect inferolateral wall. Echocardiogram done 03/23/19 revealed visual EF 35% to 40%, grade 2 diastolic dysfunction, mild aortic valve stenosis. Please see the accompanying Cardiology note by Dr. Kimble, 07/05/19 for further details. The patient denies any chest pain, syncopal episodes or near syncopal episodes. Gastrointestinal: As described in history of present illness. Genitourinary: No dysuria. Musculoskeletal: He is limited by back pain, but continues to be able to do the stepper and recumbent bike during cardiac rehab. Integumentary: No chronic rashes or skin changes. Neurologic: No headache, blurred vision, or areas of focal weakness or numbness. Psychiatric: No reported anxiety, depression, or insomnia. PHYSICAL EXAMINATION GENERAL SURVEY: The patient is a 68-year-old male, obese, well developed, in no acute distress. VITAL SIGNS: Height 69 inches, weight 229 pounds, body mass index 33.8. Blood pressure 126/68, pulse 68 and regular, respiratory rate 16, temperature 97.5 tympanic. HEENT: Benign. NECK: Supple. No cervical lymphadenopathy. No carotid bruits. LUNGS: Breath sounds bilaterally clear and equal. BACK: No CVA tenderness. CHEST: Well healed surgical scars status post coronary artery bypass grafting. HEART: Regular rate and rhythm. No murmurs or rubs appreciated. ABDOMEN: Obese. Active bowel sounds. Soft, nontender throughout. Negative Santos sign. No obvious organomegaly or evidence of masses, reducible umbilical hernia is appreciated. BACK: No CVA tenderness. GENITALIA: Deferred. RECTAL: Deferred. EXTREMITIES: Warm without edema or skin ulceration. NEUROLOGIC: Alert and oriented x3. Steady gait. SKIN: Warm, dry, intact. IMPRESSION: 1. Calculus of gallbladder with chronic cholecystitis without obstruction. 2. Umbilical hernia without obstruction. PLAN: Same-day surgery admission to Dr. Delong's service for laparoscopic cholecystectomy and open umbilical hernia repair on 07/18/19. He will take his last dose of Eliquis on 07/15/19 and his last dose of clopidogrel on , 07/12/19. He will start aspirin 81 mg daily while he is off the other anticoagulation as advised by Dr. Kimble. A prescription for oxycodone 5/325 mg was electronically sent to [facility]. JASON ESPINOZA, [employer]ER [id number]/[facility] #: [id number] ANDRE
[~2019-07-18 07:09] MED LIST changes: +Buffered Lidocaine 1% SYRIN* 1 ML/SYRINGE INTRADERM ONE; -DOXYcycline CAP(*) 100 MG PO ONE; -Diazepam TAB(*) 5 MG ONE; -Heparin 2 UNITS/ML IVPREMIX* 2,000 ML IV ONE; -Heparin(*) 1000 UNIT/ML 10 ML VIAL CATH LAB IV ONE; -Iodixanol 320 (CONTRAST) 100 ML SDV ONE; -Isosorbide Mononitrate ER TAB* 30 MG PO ONE; +Lactated Ringers 1000 ML Bag* 1,000 ML IV SCH; -Lidocaine 1% INJ* 10 MG/ML 30 ML SDV ONE; -Midazolam* 1 MG/ML 5 ML VIAL (5 MG) ONE; -NS 0.9% 1000 ML** 1,000 ML IV SCH; -VERAPAMIL 2.5 MG/ML 2 ML VIAL ** 5 mg/2 ml ONE; -diPHENhydraMINE PO* 25 MG ONE; -fentaNYL* 50 MCG/ML 2 ML VIAL (100 MCG VIAL) ONE; -nitroGLYCERIN DRIP* 0 MCG/0 ML BTL ONE
[2019-07-18] MEDS ORDERED: ceFAZolin 2 GM PREMIX in ORs 2 GM/50 ML BAG ONE (07:37)
[2019-07-18] MEDS ORDERED: fentaNYL* 50 MCG/ML 2 ML VIAL (100 MCG VIAL) ONE (09:57)
[2019-07-18] MEDS ORDERED: Midazolam* 1 MG/ML 2 ML VIAL (2 MG) ONE (09:57)
[2019-07-18] MEDS ORDERED: Calcium CHLORIDE 10% SYRINGE* 1 GM/10 ML ONE (10:17)
[2019-07-18] MEDS ORDERED: Bupivacaine 0.25% EPI 200,000* 30 ML SDV ONE (10:33)
[2019-07-18] MEDS ORDERED: HYDROmorphone INJ1* 1 MG/ML SYRINGE IV PRN (10:40)
[2019-07-18] MEDS ORDERED: Naloxone* 0.4 MG/ML 1 ML VIAL IV PRN (10:40)
[2019-07-18] MEDS ORDERED: oxyCODONE TAB* 5 MG TAB PO PRN (10:40)
[2019-07-18] MEDS ORDERED: Rocuronium* 10 MG/ML VIAL ONE ×2 (11:01→11:07)
[2019-07-18] MEDS ORDERED: Propofol* 10 MG/ML 20 ML BTL ONE (11:04)
[2019-07-18] MEDS ORDERED: Succinylcholine* 20 MG/ML 10 ML VIAL ONE (11:04)
[2019-07-18] MEDS ORDERED: Etomidate* 2 MG/ML 10 ML VIAL ONE (11:04)
[2019-07-18] MEDS ORDERED: Dexamethasone IV* 4 MG/ML 1 ML (4 MG) ONE (11:04)
[2019-07-18] MEDS ORDERED: Sugammadex * 500 MG/5 ML VIAL IV PUSH ONE (11:34)
[2019-07-18] MEDS ORDERED: Bacitracin OINTMENT* 0.5% 0.5 oz TUBE ONE (11:41)
--- NOTE | 2019-07-18 12:01 | BRIEFOPN ---
Brief Operative/Procedure Note - Operation Details Pre-Op Diagnosis: symptomatic cholelithiasis; umbilical hernia Post-Op Diagnosis: same Procedures: laparoscopic cholecystectomy; open repair umbilical hernia Surgeon(s)/Proceduralists: Sindi. Assist: BENJI Gallego Anesthesia: GET Estimated Blood Loss: < 25 ml Findings: as above Specimen(s)/Culture(s) Description: gallbladder Complications: none
[2019-07-18] MEDS ORDERED: oxyCODONE TAB* 5 MG TAB ONE (12:16)
[2019-07-18] MEDS ORDERED: Ondansetron ODT TAB* 4 MG ONE (16:00)
[2019-07-18 16:32] VITALS: BP 133/80
--- NOTE | 2019-07-18 20:44 | OP ---
DATE OF OPERATION: 07/18/19 - [facility] DATE OF : 50 SURGEON: Donavon Delong MD HAND STEMMER: BENJI Garcia ANESTHESIOLOGIST: Dr. Choi. ANESTHESIA: General anesthesia. PRE-OP DIAGNOSES: 1. Symptomatic cholelithiasis. 2. Umbilical hernia. POST-OP DIAGNOSES: 1. Symptomatic cholelithiasis. 2. Umbilical hernia. OPERATIVE PROCEDURE: Laparoscopic cholecystectomy and open repair of umbilical hernia. ESTIMATED BLOOD LOSS: Minimal blood loss, less than 25 cc. FLUIDS: Crystalloid fluid given, please see Anesthesia report for details. SPECIMEN: Gallbladder. COMPLICATIONS: None. DRAINS: None. DESCRIPTION OF PROCEDURE: Mr. Allen was identified in the preoperative area. I discussed the case with him again and consent was signed. He was marked appropriately and brought to the operating room and placed on the operating table in supine position. Preoperative antibiotics were given. Sequential devices were placed on bilateral lower extremities. General anesthesia was induced and the patient's abdomen was clipped of hair and prepped and draped in standard surgical fashion. A time-out was performed. Folds of the umbilicus were elevated and a Veress needle was inserted through the umbilical hernia into the abdominal cavity, which was then allowed to insufflate to a pressure of 15 mmHg. The patient tolerated the insufflation well. An incision was made over the Veress needle, which was removed and an optical 12-mm trocar was inserted through the belly button defect. Laparoscope was inserted. There was no evidence of injury from the trocar insertion or from the Veress needle. Additional trocars were then placed in the following position: A 12 mm in the subxiphoid area and two 5 mm along the right costal margin. The table was repositioned. Fundus of the gallbladder was identified and elevated above the liver. The infundibular region was retracted towards the right lower quadrant. We could not identify common bile duct, but we did see a Calot's node. We dissected the peritoneum over this on the medial aspect of the gallbladder and extended up towards the top of the gallbladder. We took the peritoneal attachments on the lateral aspect. The cystic duct was isolated as was the cystic artery. Blunt and sharp dissection was carried out on the posterior aspect to ensure we had one structure entering into the gallbladder. This was doubly clipped and ligated and the cystic artery was doubly clipped and ligated. The gallbladder was then removed from the liver bed and placed in an endoscopic retrieval bag that was placed through the umbilical port after transferring the camera. Gallbladder was removed from the umbilical port. Review of the edge of this appeared to be approximately 1.5-cm defect. We then allowed the abdomen to collapse at the umbilicus. We closed the defect with interrupted 0 Prolene sutures using three sutures in all. We re-insufflated the abdomen, put the camera through the subxiphoid incision to make sure we did not have any intraabdominal contents, which we did not. We then allowed the abdomen to collapse and trocars were removed under direct vision and the umbilical incision site was reapproximated with 3-0 chromic sutures and the additional three incisions were closed with 4-0 Monocryl subcuticular sutures. Steri- Strips and sterile dressing were applied. The patient tolerated the procedure well and was transferred to the PACU in stable condition. [id number] #: [id number] ANDRE
== END 2019-07-18 16:45 | disposition home or self-care (01) ==
LOC: OR 07:09
PROVIDERS: ATTEND Surgery
DX: K80.10 Calculus of gallbladder with chronic cholecystitis without obstruction (principal); K42.9 Umbilical hernia without obstruction or gangrene; E11.8 Type 2 diabetes mellitus with unspecified complications; I10 Essential (primary) hypertension; I25.10 Atherosclerotic heart disease of native coronary artery without angina pectoris; I48.0 Paroxysmal atrial fibrillation; G47.33 Obstructive sleep apnea (adult) (pediatric); I25.2 Old myocardial infarction; I49.5 Sick sinus syndrome; E78.5 Hyperlipidemia, unspecified; I47.2 Ventricular tachycardia; I42.9 Cardiomyopathy, unspecified; Z79.01 Long term (current) use of anticoagulants; Z95.810 Presence of automatic (implantable) cardiac defibrillator; Z87.891 Personal history of nicotine dependence; Z95.1 Presence of aortocoronary bypass graft
CPT/HCPCS: 88304; A9270-GY; J0330; J0690; J1100; J2250; J2704; J3010